=== PATIENT | male | born 1955 | race Caucasian/White ===

== ENCOUNTER → 2018-10-19 | Outpatient (CLI) | payer OTHER | END | disposition home or self-care (01) | LOC: LABPAT 15:45 | PROVIDERS: ATTEND Orthopaedic Surgery Orthopaedic Surgery of the Spine | DX: Z01.812 Encounter for preprocedural laboratory examination (principal); M41.80 Other forms of scoliosis, site unspecified | CPT/HCPCS: 80053; 81003; 85025; 85610; 85730; 86850; 86900; 86901; 87070 ==

== ENCOUNTER 2018-10-26 06:18 | Inpatient (IN) | payer MEDICARE, OTHER ==
[2018-10-19 16:56] LABS: ALT 26 U/L (21-72); AST 23 U/L (17-59); Albumin 4.5 g/dL (3.5-5.0); Alkaline Phosphatase 73 U/L (38-126); Anion Gap 9 mmol/L; Blood Urea Nitrogen 25 mg/dL (9-20); Carbon Dioxide 23 mmol/L (22-30); Chloride 102 mmol/L (98-107); Glucose 155 mg/dL (74-99); Potassium 4.5 mmol/L (3.5-5.1); Sodium 134 mmol/L (137-145); Total Bilirubin 0.5 mg/dL (0.2-1.3)
[2018-10-19 16:58] LABS: Basophils % (A) 0 %; Eosinophils # (A) 0.1 k/uL (0-0.7); Eosinophils % (A) 1 %; HCT 46.6 % (39.0-53.0); HGB 15.6 gm/dL (13.0-17.5); Lymphocytes # (A) 2.3 k/uL (1.0-4.8); Lymphocytes % (A) 22 %; MCH 30.8 pg (25.0-35.0); MCHC 33.4 g/dL (31.0-37.0); Mean Platelet Volume 6.8; Monocytes # (A) 0.7 k/uL (0-1.0); Monocytes % (A) 7 %; Neutrophils # (A) 6.7 k/uL (1.3-7.7); Neutrophils % (A) 66 %; Platelet Count 244 k/uL (150-450); RBC 5.06 m/uL (4.30-5.90); RDW 12.5 % (11.5-15.5); WBC 10.2 k/uL (3.8-10.6)
[2018-10-19 17:02] LABS: INR 0.9 (<1.2); Partial Thromboplastin Time 24.9 sec (22.0-30.0); Prothrombin Time 9.7 sec (9.0-12.0)
[2018-10-19 20:09] LABS: Appearance,Urine Clear (Clear); Bilirubin,Urine Negative (Negative); Blood,Urine Negative (Negative); Color,Urine Yellow; Glucose,Urine (UA) 3+ (Negative); Ketones,Urine Negative (Negative); Leukocyte Esterase,Urine Negative (Negative); Nitrite,Urine Negative (Negative); Protein,Urine Negative (Negative); Specific Gravity,Urine 1.033 (1.001-1.035); Urobilinogen,Urine <2.0 mg/dL (<2.0)
[~2018-10-26 06:18] MED LIST: BACITRACIN 50,000 UNIT, POLYMYXIN B 500,000 UNIT in SODIUM CHLORIDE 0.9% IRRIGATIO 1,00... IRRIGATION ONE; DEXAMETHASONE SOD PHOSPHATE 10 MG/ML 1 ML VIAL IV ONE; LIDOCAINE 1% 20 ML VIAL (10MG/ML) FOR IV START INTRADERMA PRN; MIDAZOLAM 2 MG/2 ML VIAL IV PRN; ceFAZolin IN SWFI 2 GM/20 ML SYRINGE IVP ONE; fentaNYL (PF) 50 MCG/ML 2 ML AMP IV PRN
[2018-10-26] MEDS: ONDANSETRON 4 MG/2 ML VIAL IVP ONE ×2 (06:55→13:21)
[2018-10-26] MEDS: LACTATED RINGERS 1,000 ML IV SCH ×2 (06:55→16:28)
[2018-10-26 07:16] LABS: Glucose,Whole Blood 116 mg/dL (75-99)
[2018-10-26] MEDS ORDERED: HYDROmorphone (PF) 1 MG/ML ONE (07:25)
[2018-10-26] MEDS ORDERED: ePHEDrine SULFATE/0.9% NACL/PF 50 MG/5 ML SYRINGE IV ONE (07:25)
[2018-10-26] MEDS ORDERED: ROCURONIUM BROMIDE 10 MG/ML 10 ML VIAL IV ONE (07:25)
[2018-10-26] MEDS ORDERED: PROPOFOL 10 MG/ML 20 ML VIAL IV ONE (07:25)
[2018-10-26] MEDS ORDERED: HEPARIN SODIUM,PORCINE 10,000 UNIT/ML 1 ML VIAL ONE (07:25)
[2018-10-26] MEDS ORDERED: SODIUM CHLORIDE 0.9% IRRIG 1,000 ML BTL IRRIGATION ONE (07:25)
[2018-10-26] MEDS ORDERED: KETAMINE 10 MG/ML 20 ML VIAL ONE (07:25)
[2018-10-26] MEDS ORDERED: fentaNYL (PF) 50 MCG/ML 2 ML AMP ONE (07:25)
[2018-10-26] MEDS ORDERED: LIDOCAINE 1% INJ 10MG/ML (20 ML MDV) ONE (07:25)
[2018-10-26] MEDS ORDERED: SUCCINYLCHOLINE CHLORIDE 100 MG/5 ML SYR IV ONE (07:25)
[2018-10-26] MEDS ORDERED: MIDAZOLAM 2 MG/2 ML VIAL ONE (07:25)
[2018-10-26] MEDS ORDERED: LIDOCAINE 0.5%-EPI 1:200,000 50 ML VIAL SQ ONE (08:00)
[2018-10-26] MEDS ORDERED: THROMBIN (BOVINE) 5,000 UNIT VIAL TOPICAL ONE (08:00)
[2018-10-26] MEDS ORDERED: GELATIN SPONGE,ABSORB (LARGE) 1 EACH SPONGE TOPICAL ONE (08:00)
[2018-10-26] MEDS ORDERED: LACTATED RINGERS 1,000 ML IV ONE ×2 (09:21→11:46)
[2018-10-26] MEDS ORDERED: BUPIVACAINE (PF) 0.5% 30 ML VIAL SQ ONE ×2 (12:37)
[2018-10-26] MEDS ORDERED: MAGNESIUM HYDROXIDE 2,400 MG/10 ML CUP PO PRN (13:00)
[2018-10-26] MEDS ORDERED: BENZOCAINE/MENTHOL LOZENG 1 EACH LOZENGE MUCOUS MEM PRN (13:00)
[2018-10-26] MEDS ORDERED: HYDROmorphone 1 MG/ML 1 ML SYRINGE IVP PRN ×3 (13:00→13:01)
[2018-10-26] MEDS ORDERED: ONDANSETRON 4 MG/2 ML VIAL IVP PRN (13:01)
[2018-10-26] MEDS ORDERED: HYDROcodone/APAP 5-325MG 1 EACH TAB PO PRN (13:04)
[2018-10-26] MEDS ORDERED: HYDROcodone/APAP 7.5-325MG 1 EACH TAB PO PRN (13:04)
[2018-10-26] MEDS ORDERED: TEMAZEPAM 15 MG CAP PO PRN (13:04)
[2018-10-26] MEDS ORDERED: diphenhydrAMINE 50 MG/ML 1 ML VIAL IVP ONE (13:21)
--- NOTE | 2018-10-26 13:21 | XR ---
EXAM TYPE: LUMBAR SPINE X RAY SERIES COMPARISON: NONE HISTORY: Needle placement TECHNIQUE: 4 views are submitted. FINDINGS: Single crosstable lateral view demonstrates a metallic instrument overlying the upper lumbar spine. P ostsurgical changes and severe degenerative disc disease noted. IMPRESSION: 1. Intraoperative localization
--- NOTE | 2018-10-26 13:23 | XR ---
EXAM TYPE: LUMBAR SPINE X RAY SERIES COMPARISON: NONE HISTORY: Hardware placement TECHNIQUE: 2 views are submitted. FINDINGS: Postsurgical changes are seen. There is limited resolution. Grossly there appears to be anatomic alig nment. IMPRESSION: 1. Postoperative change.
--- NOTE | 2018-10-26 13:24 | P.OP ---
Date of Procedure: 10/26/18 Preoperative Diagnosis: Degenerative scoliosis, spinal stenosis L1-2 L2-3 and L5-S1, history of prior fusion L3 4 and L4 5 with retained hardware, low back pain and lower extremity radiculopathy, lower extremity weakness, degenerative disc disease, Postoperative Diagnosis: Same with findings of solid fusion L3 4 L4 5 Anesthesia: GETA Pathology: none sent Condition: stable Disposition: PACU Description of Procedure: BRIEF OPERATIVE NOTE Preoperative Diagnosis:Degenerative scoliosis, spinal stenosis L1-2 L2-3 and L5- S1, history of prior fusion L3 4 and L4 5 with retained hardware, low back pain and lower extremity radiculopathy, lower extremity weakness, degenerative disc disease, Postoperative Diagnosis:Degenerative scoliosis, spinal stenosis L1-2 L2-3 and L5-S1, history of prior fusion L3 4 and L4 5 with retained hardware, low back pain and lower extremity radiculopathy, lower extremity weakness, degenerative disc disease, with findings of solid fusion L34 L4 5 Procedure: Removal of deep hardware L3 L4 L5, Exploration of fusion L3 4 L4 5 Laminectomy and decompression with wide bilateral foraminotomy L1-2 L2-3 and L5-S1 Posterior lateral decompression and fusion L1-2 L2-3 and L5-S1 Transforaminal lumbar interbody fusion for a 360 fusion L2-3 for a 360 fusion Discectomy for decompression L2-3 Placement of interbody graft L2-3 Local autogenous bone grafting Harvesting of bone marrow aspirate Use of Cell Saver Use of bone graft extenders Use of neuro monitoring Surgeon: Dr. Andujar Potline Monitor: Francis MESSINA who is present throughout the entire the case persistence during positioning, dissection, exposure, visualization, and all crucial elements of the case as well as closure. Anesthesia: General anesthesia Per Dr. De Guzman Estimated blood loss: 1500 mL with 478 given back through Cell Saver Complications: None apparent Components implanted:We implanted new K2M Huggins pedicle screws measuring 6.5 and 7.5 mm as well as 2 rods measuring 150 mm each one cross-link 1 [place] interbody graft 1 Osteoamp sponge and 30 mL of DBX bone fibers to supplemental local autogenous and bone marrow aspirate graft Disposition: To recovery room in good stable condition. OPERATIVE INDICATIONS The patient has had long-standing issues in their lower back and lower extremities. number of years ago he had undergone decompression and fusion L3 4 L4 5 for his spinal stenosis and lower extremity radiculopathy. He had done very well for several years however over the past year he has been developing worsening pain in his back and lower extremities. He is having weakness in his lower extremities in great difficulty with his mobilization and ambulation. He was found to have progressive degeneration above his prior fusion as well as below the fusion. He had a general scoliosis as well as severe spinal stenosis at L2-3 and significant stenosis L1-2 and L5-S1. The spinous right well with low back and lower except symptoms. The patient has been through conservative treatment. having any prolonged benefit despite aggressive conservative care. We discussed various treatment options including surgery, and the patient wishes to proceed with surgery We discussed the risk, patient's alternatives and benefits of surgery including but not limited to, risk of bleeding risk of infection, risk of need for further surgery, risk of decreased, loss of motion, muscle function, malunion nonunion, hardware failure, nerve damage, paralysis, heart attack, blindness and . OPERATIVE SUMMARY After discussing all the risks, patient alternatives and benefits at length, the patient elected to proceed with surgical intervention, signed informed consent, and presented for their procedure. The patient was seen and examined in the preoperative holding area and the surgical site was marked. The patient was given antibiotics and brought to the operating room. The patient was sedated and intubated by anesthesia in standard fashion. The patient was positioned on to the operating room table in a prone position on the appropriate frame which was well-padded and well molded. We were careful to pad any bony prominences and pressure points. We were careful to maintain the patient's cervical spine and good neutral alignment and position throughout. The patient was prepped and draped in a normal standard fashion. An appropriate timeout and keystone protocol performed. We were able to proceed with the surgery. The local wound area was infiltrated with local anesthetic. An incision was made at the midline longitudinally over the appropriate levels Utilizing his prior incision and extended cephalad and caudad. Dissection was taken down subcutaneously to the level of the fascia which was split midline. there is significant scar tissue formation we dissected through and extended down to the hardware at L3-L4 and L5 bilaterally. Dissection was taken over the lamina bilaterally over the facet joints and to the transverse processes 1 L2 and the sacral ala of S1. Using all the hardware at L3 L4 L5 and removal. There is significant bony formation over the hardware and its posterior lateral gutters and I had to chisel down significant amount of bone. I was able to expose the hardware and removed the cross-link as well as Screws and rods. I was able expose the screw heads and remove the deep screws at L3-L4 5 bilaterally. These were all examined and found be in total. The fusion L3 4 and 5 was explored and he was found have excellent solid fusion L3 L4 L5. The pedicle holes were explored and found have good for woods and a good base at L3- L4 and L5 . Further expose down at the adjacent levels. Intraoperative x-ray was taken which showed a marker at the appropriate level of L2. With the appropriate level positively confirmed, we were able to proceed with placement of the pedicle holes and screws. I further explored L1-L2 and the S1 levels. The patient had all their twitches back. The wound was copiously irrigated and suctioned dry as had been done periodically throughout the case. Screw holes were established similarly at each level at L1-L2 and at S1 bilaterally. A sharp awl was used to establish the starting hole. It was palpated and found to have good for woods and good base. A monitored Steffee probe was used to establish the pedicle hole. It was positioned so there was no stimulation at 12 mA. The hole was palpated and found to have good for woods and a good base. The hole was tapped with the appropriate sized tap. The transverse process or sacral ala was decorticated with a high-speed bur. I was able to use these holes to place the appropriate size screw and good alignment and good position with good bony purchase. When the screws were inserted there were stimulated, and found to have no stimulation at 20 mA. I was able to turn my attention to the decompression. decompression was performed with a combination of rongeurs, curettes, Kerrison rongeurs and a ball-tip feeler. the risk extremely severe spinal stenosis L2-3 him significant stenosis L1-2 and L5-S1. There was significant bony formation and had to take bony formation as well as the thickened ligamentum flavum. I did wide bilateral foraminotomies and remove the thickened capsule as well as the inferior osteophytes bilaterally. All of the bone that was removed was stripped and morcellized for use as autogenous bone graft later in the case. I was able to obtain good central decompression as well as wide bilateral foraminal decompression. There is no evidence of dural tear or leak. Good hemostasis was maintained. The wound was irrigated and suctioned dry. I was able get excellent decompression L2-3 12 and L5-S1. the most unstable level was at L2-3 and I planned to perform a TLIF with interbody stabilization at L2-3. I performed a complete facetectomy at the appropriate level on the most symptomatic side At L2-3 on the right. All bone that was removed was saved for local autogenous bone grafting. I was able to gain access to the disc space at the appropriate level/levels. Good hemostasis was maintained. I was able to protect the neurologic structures. A discectomy was performed. This provided further decompression. I was also able to perform complete discectomy and endplate preparation with a combination of pituitary curettes, rasps and scrapers. With the interbody space prepared, I was able to do appropriate sizing. The appropriate size cage was chosen. The wound was irrigated and suctioned dry. The interbody space was packed with local autogenous bone graft and a small portion of bone graft substitute, as was the cage itself. Protecting the soft tissue structures, I was able place the cage in good alignment and good position with good fit and fill. There is no eviden ce of extrusion of the graft material nor protrusion of the interbody device. The wound was irrigated and suctioned dry. With the hardware intact, intraoperative x-ray was again taken which showed good alignment and position of the hardware at the appropriate levels At L1-2 L2-3 and L3 4 5 and S1. We were then able to measure, contour and place the rods and appropriate hardware bilaterally. I was able to place capcrews, tighten them down, and torque them off appropriately. With this intact I was able to place the local autogenous bone graft with additional bone graft enhancer as necessary into the posterior lateral gutters bilaterally. With the bone graft intact, a stable construct, and good decompression at the appropriate levels, we were able to proceed with closure. Good hemostasis was maintained. There is no evidence of dural tear or leak. The fascia was closed for a watertight closure. The subcutaneous tissue was closed over a superficial drain. The subcuticular tissu e was closed with absorbable suture. The wound was cleaned and dried and dressed with the appropriate dressing. The drapes were broken down. The patient was gently rolled back onto their hospital bed being careful to maintain their cervical spine and good neutral alignment and position. They were woken up by anesthesia, extubated, and brought to the recovery room in good stable condition. The patient will be admitted to the hospital for appropriate postoperative care, medical management and monitoring. We will continue to follow them closely about the postoperative course.
[2018-10-26 13:30] LABS: Glucose,Whole Blood 145 mg/dL (75-99)
[2018-10-26] MEDS ORDERED: METOCLOPRAMIDE 5 MG/ML 2 ML VIAL IVP ONE (13:31)
[2018-10-26] MEDS ORDERED: PROMETHAZINE INJ 25 MG/ML 1 ML VIAL IVPB ONE (13:37)
[2018-10-26] MEDS: HYDROmorphone 1 MG/ML 1 ML SYRINGE IVP ONE ×2 (13:38→14:14)
[2018-10-26] MEDS: SODIUM CHLORIDE 0.9% 1,000 ML IV SCH (16:28)
[2018-10-26] MEDS: ceFAZolin IN SWFI 2 GM/20 ML SYRINGE IVP SCH ×2 (16:47→23:36)
[2018-10-26] MEDS: metFORMIN 850 MG TAB PO SCH (16:47)
[2018-10-26 16:51] LABS: Glucose,Whole Blood 214 mg/dL (75-99)
[2018-10-26] MEDS: HYDROmorphone 0.5 MG/0.5 ML SYRINGE IVP PRN ×2 (18:27→22:33)
[2018-10-26 21:01] LABS: Glucose,Whole Blood 379 mg/dL (75-99)
[2018-10-26] MEDS: GLIMEPIRIDE 2 MG TAB PO SCH (22:08)
[2018-10-26] MEDS: INSULIN ASPART (NovoLOG) 100 UNIT/ML VIAL SQ SCH (22:08)
[2018-10-26] MEDS: MAGNESIUM SULFATE-D5W PMX 1 GM in DEXTROSE/WATER 1 100ML.BAG IVPB SCH ×2 (22:09→23:36)
[2018-10-26] MEDS ORDERED: FAMOTIDINE 20 MG TAB PO STA ×2 (22:17→22:39)
--- NOTE | 2018-10-26 23:46 | CONS ---
CONSULTATION REASON FOR CONSULTATION: Advice regarding diabetes mellitus and multiple medical issues, requested by Dr. Andujar. HISTORY OF PRESENT ILLNESS: This 63-year-old gentleman with a past medical history of multiple medical problems, including history of diabetes, history of GERD, history of laminectomy, underwent exploration of fusion at L3-4, L4-5 as well as laminectomy and decompression with wide bilateral foraminotomy of L1-L2 and L2-L3 and L5-S1. Postoperatively in the recovery room in the PACU, the patient had about 9 beats of PVCs and the patient was admitted for further evaluation and treatment. Cardiology evaluation is in progress. Magnesium was 1.6. The patient also had blood sugar elevated up to 380. Insulin scale is being offered. The patient was taking only p.o. antihyperglycemic medication at home. The patient was not taking insulin. Hemoglobin A1c is unknown at this time. There is no history of any fever, rigor or chills. No history of headache, loss of consciousness, chest pain, palpitations, hematochezia or melena at this time. PAST MEDICAL HISTORY: 1. History of diabetes mellitus, type 2. 2. GERD. 3. History of DJD. MEDICATIONS: Medications prior to admission include: 1. Metformin 850 mg p.o. b.i.d. 2. Restoril 15 mg at bedtime. 3. Ranitidine 150 mg each morning. 4. Prinivil 5 mg each morning. 5. [place] 7.5 q.6 p.r.n. 6. Amaryl 2 mg p.o. b.i.d. 7. EpiPen 0.3 p.r.n. 8. Celebrex 200 mg p.o. daily. ALLERGIES: SHELLFISH. FAMILY HISTORY: History of DVT in the family. SOCIAL HISTORY: Previous history of smoking. No history of alcohol intake. REVIEW OF SYSTEMS: ENT: No diminished hearing. No diminished vision. CARDIOVASCULAR SYSTEM: As mentioned earlier. RESPIRATORY SYSTEM: As mentioned earlier. GI: No nausea, vomiting. : No dysuria or retention. NERVOUS SYSTEM: No numbness, weakness. ALLERGY/IMMUNOLOGY: No asthma, hayfever. MUSCULOSKELETAL: As mentioned earlier. HEMATOLOGY/ONCOLOGY: No history of anemia. ENDOCRINE: As mentioned earlier. CONSTITUTIONAL: As mentioned earlier. DERMATOLOGY: Negative. RHEUMATOLOGY: Negative. PSYCHIATRY: As mentioned earlier. PHYSICAL EXAMINATION: Patient is alert, oriented x3. Pulse is 97, blood pressure 110/70, respiration 18, temperature 98.2, pulse ox 97% on room air. HEENT: External appearance of nose and ears normal. Oral cavity normal. NECK: No jugular venous distention. No carotid bruit. No lymph node enlargement. CARDIOVASCULAR SYSTEM: S1, S2 muffled. No S3. No S4. RESPIRATORY SYSTEM: Breath sounds diminished at the bases. A few scattered rhonchi. No crackles. ABDOMEN: Soft, non-tender. No mass palpable. LEGS: No edema. No swelling. NERVOUS SYSTEM: Higher functions as mentioned earlier. Moves all 4 limbs. No focal motor or sensory deficit. LYMPHATICS: No lymph node palpable in neck, axillae or groin. SKIN: No ulcer, rash, bleeding. JOINTS: No active deforming arthropathy. EXAMINATION OF THE BACK: Status post surgery. LABS: Labs at this time show WBC 10.2, hemoglobin 15.6, sodium 134. Glucose 155 and 379. Magnesium 1.6. ASSESSMENT: 1. Severe degenerative joint disease of the back with spinal stenosis and status post exploration of fusion at L3, L4, L5 and laminectomy and decompression of L1 to L3 and L5 to S1. 2. Postoperative premature ventricular contractions. 3. Hyponatremia, mild. 4. Hypomagnesemia, mild. 5. Diabetes mellitus, type 2, uncontrolled, with hyperglycemia. 6. Gastroesophageal reflux disease. 7. History of degenerative joint disease. 8. History of laminectomy. 9. History of anxiety. 10.Remote history of nicotine dependence. RECOMMENDATIONS AND DISCUSSION: In this 63-year-old gentleman who presented with multiple complex medical issues, at this time I recommend to continue current management, continue symptomatic treatment. I would recommend DVT prophylaxis, incentive spirometry, with 2 grams of magnesium to correct the hypomagnesemia. Otherwise, I would also recommend Accu-Cheks before meals and at bedtime and scale. Hemoglobin A1c is not available. I would recommend hemoglobin A1c. Otherwise, cardiology consultation has been sought. A 2D echo is ordered. We will follow the patient closely with you. Thank you, Dr. Andujar, for letting us participate in the care of this patient. MMODL / IJN: [id number] /
[2018-10-27] MEDS: HYDROmorphone 0.5 MG/0.5 ML SYRINGE IVP PRN (02:26)
[2018-10-27] MEDS: SODIUM CHLORIDE 0.9% 1,000 ML IV SCH ×2 (02:30→18:33)
[2018-10-27 07:27] LABS: Glucose,Whole Blood 177 mg/dL (75-99)
[2018-10-27 08:09] LABS: Basophils % (A) 0 %; Eosinophils # (A) 0.1 k/uL (0-0.7); Eosinophils % (A) 1 %; HCT 32.8 % (39.0-53.0); Lymphocytes # (A) 1.2 k/uL (1.0-4.8); Lymphocytes % (A) 13 %; MCH 30.7 pg (25.0-35.0); Mean Platelet Volume 7.5; Monocytes # (A) 0.6 k/uL (0-1.0); Monocytes % (A) 7 %; Neutrophils # (A) 7.1 k/uL (1.3-7.7); Neutrophils % (A) 78 %; Platelet Count 160 k/uL (150-450); RBC 3.52 m/uL (4.30-5.90); RDW 12.9 % (11.5-15.5); WBC 9.1 k/uL (3.8-10.6)
[2018-10-27 08:11] LABS: Anion Gap 5 mmol/L; Blood Urea Nitrogen 14 mg/dL (9-20); Calcium 8.7 mg/dL (8.4-10.2); Carbon Dioxide 24 mmol/L (22-30); Chloride 104 mmol/L (98-107); Glucose 170 mg/dL (74-99); Magnesium 1.8 mg/dL (1.6-2.3); Potassium 4.4 mmol/L (3.5-5.1); Sodium 133 mmol/L (137-145)
[2018-10-27 08:14] LABS: HGB 10.8 gm/dL (13.0-17.5)
[2018-10-27] MEDS: metFORMIN 850 MG TAB PO SCH ×2 (08:32→18:32)
[2018-10-27] MEDS: SENNOSIDES-DOCUSATE SODIUM 1 EACH TAB PO SCH (08:32)
[2018-10-27] MEDS: LISINOPRIL 5 MG TAB PO SCH (08:33)
[2018-10-27] MEDS: GLIMEPIRIDE 2 MG TAB PO SCH ×2 (08:34→20:39)
[2018-10-27] MEDS: HYDROcodone/APAP 5-325MG 1 EACH TAB PO PRN ×2 (08:35→17:59)
[2018-10-27] MEDS ORDERED: FAMOTIDINE 20 MG TAB PO SCH (09:00)
[2018-10-27] MEDS: INSULIN ASPART (NovoLOG) 100 UNIT/ML VIAL SQ SCH ×4 (09:13→20:39)
--- NOTE | 2018-10-27 09:45 | P.PN ---
Progress Note - Text Progress Note Date: 10/27/18 Postoperative day #1 Patient is seen and examined today at bedside. The patient has some pain around the surgical site as expected. Pain is being controlled with medication. He denies any chest pain shortness of breath. He is already sitting up at a chair bedside which she was able to yesterday. He was able to void freely and his Bet[place] has been discontinued. He has tolerated some fit this morning. He denies nausea or vomiting. Physical Exam Afebrile with stable vital signs Abdomen is soft nontender. Chest has good excursion deep and space expiration The incision site is clean dry and intact. No erythema there is no purulence. His dressing in his back is still intact without significant drainage. The drain is intact. Extremities have not had neurologic change from prior to surgery. He has sustained dorsiflexion plantarflexion and EHL intact Calves and thighs were soft nontender without evidence of DVT. Assessment/Plan Postoperative day #1 status post open decompression and fusion L1-2 L2-3 and L5- S1 with removal of hardware L3 4 and L45. The patient had significant blood loss acutely with his surgery with proximal October 1499 ml blood loss with 470 Cell Saver replacement. He had a short run of V. tach history and is on telemetry monitoring. He denies any chest pain shortness breath or any prior problems with cardiac issues. 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 He is continuing monitoring and fascial workup as per cardiology. Patient is progressing as expected from the surgery in terms of his pain. We will continue to increase the patient's mobilization with therapy. We will continue pain control with oral or IV medications. We'll continue to follow patient closely. The patient does live alone and will likely need placement postop relief after his discharge from the hospital and we'll have case management see him as well.
[2018-10-27 11:52] LABS: Glucose,Whole Blood 192 mg/dL (75-99)
--- NOTE | 2018-10-27 12:27 | P.CRDCN ---
History of Present Illness History of present illness: This is a pleasant 63-year-old male past medical history significant for hypertension, diabetes mellitus, chronic back pain status post open decompression and fusion with removal of hardware. While he was in the recovery room yesterday he had a 10 beat run of monomorphic ventricular tachycardia. The patient was asymptomatic and sedated at the time. He denies having any signi ficant chest discomfort, shortness of breath, dizziness or palpitations. He was unaware that this even occurred. He is seen and examined sitting up in bed in no acute distress. He complains of some low back discomfort and is awaiting pain medication. He denies chest pain, shortness of breath, dizziness or palpitations. 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 There is no EKG obtained. Laboratory data reviewed, TSH 0.836, magnesium 1.8, creatinine 0.53,potassium 4.4, creatinine 133, platelets 160, hemoglobin 10.8 down from 15.6 on admission and WBC 9.1. Current cardiac medications include lisinopril 5 mg daily. At the time of my exam: CONSTITUTIONAL: Denies fever. Denies chills. EYES: Denies blurred vision. Denies vision changes. Denies eye pain. EARS, NOSE, MOUTH & THROAT: Denies headache. Denies sore throat. Denies ear pain. CARDIOVASCULAR: Denies chest pain. Denies shortness of breath. Denies orthopnea. Denies PND. Denies palpitations. RESPIRATORY: Denies cough. GASTROINTESTINAL: Denies abdominal pain. Denies diarrhea. Denies constipation. Denies nausea. Denies vomiting. MUSCULOSKELETAL: Denies myalgias. INTEGUMENTARY: Denies pruitis. Denies rash. NEUROLOGIC: Denies numbness. Denies tingling. Denies weakness. PSYCHIATRIC: Denies anxiety. Denies depression. ENDOCRINE: Denies fatigue. Denies weight change. Denies polydipsia. Denies polyurina. GENITOURINARY: Denies burning, hematuria or urgency with micturation. HEMATOLOGIC: Denies history of anemia. Denies bleeding. Blood pressure 138/77 heart rate 89 afebrile maintaining oxygen saturation on room air GENERAL: This is a 63]-year-old male in no apparent distress at the time of my examination. HEENT: Head is atraumatic, normocephalic. Pupils are equal, round. Sclerae anicteric. Conjunctivae are clear. Mucous membranes of the mouth are moist. Neck is supple. There is no jugular venous distention. No carotid bruit is heard. LUNGS: Clear to auscultation no wheezes, rales or rhonchi. No chest wall tenderness is noted on palpation or with deep breathing. HEART: Regular rate and rhythm without murmurs, rubs or gallops. S1 and S2 heard. ABDOMEN: Soft, nontender. Bowel sounds are heard. No organomegaly noted. EXTREMITIES: No evidence of peripheral edema and no calf tenderness noted. VASCULAR: Radial and dorsalis pedis pulses palpated, no evidence of clubbing. NEUROLOGIC: Patient is awake, alert and oriented x3. ASSESSMENT Non-sustained monomorphic ventricular tachycardia, 10 beast s/p anesthesia and laminectomy POD #1 laminectomy Hypertension Diabetes mellitus PLAN Electrolytes and TSH unremarkable. Obtain 2D echocardiogram and doppler study to assess cardiac structure and function. Patient thinks he may have had one prior to surgery but not sure where he had it, somewhere in [place]. He is attempting to obtain these records. However, since he has had this event it has been explained to him that he needs a repeat regardless. He is considering this. Initiate on atorvastatin 20 mg daily secondary to his history of diabetes. Obtain baseline EKG. Thank you kindly for this consultation. Nurse Practitioner note has been reviewed, I agree with a documented findings and plan of care. Patient was seen and examined. Past Medical History Past Medical History: Diabetes Mellitus, GERD/Reflux Additional Past Medical History / Comment(s): TAKES LISINOPRIL A PREVENTATIVE WITH FAMILY HISTORY OF CHF. History of Any Multi-Drug Resistant Organisms: None Reported Additional Past Surgical History / Comment(s): LAMINECTOMY. RIGHT TOTAL KNEE, PLUS 6 OTHER SURGERIES ON RIGHT KNEE. Past Anesthesia/Blood Transfusion Reactions: No Reported Reaction Past Psychological History: No Psychological Hx Reported Additional Psychological History / Comment(s): VERY ANXIOUS ABOUT SURGERY, HAS NO RELIABLE FAMILY. HAS DRIVEN OVER 200 MILES TO COME TO [place]/DR. HERNANDEZ. STAYING WITH FRIENDS (AMAN). Smoking Status: Former smoker Past Alcohol Use History: None Reported Additional Past Alcohol Use History / Comment(s): QUIT 50 YRS AGO Past Drug Use History: None Reported - Past Family History Mother Family Medical History: Deep Vein Thrombosis (DVT) Medications and Allergies Home Medications Medication Instructions Recorded Confirmed Type Celecoxib [CeleBREX] 200 mg PO DAILY 10/21/18 10/26/18 History EPINEPHrine (Auto Inject) [Epipen] 0.3 mg IM ONCE PRN 10/21/18 10/26/18 History Glimepiride [Amaryl] 2 mg PO BID 10/21/18 10/26/18 History HYDROcodone/APAP 5-325MG [[place] 1 tab PO Q6H PRN 10/21/18 10/26/18 History 5-325] HYDROcodone/APAP 7.5-325MG [[place] 1 tab PO Q6H PRN 10/21/18 10/26/18 History 7.5-325] Lisinopril [Prinivil] 5 mg PO QAM 10/21/18 10/26/18 History Ranitidine HCl 150 mg PO QAM 10/21/18 10/26/18 History Temazepam [Restoril] 15 mg PO HS PRN 10/21/18 10/26/18 History metFORMIN HCL 850 mg PO BID 10/21/18 10/26/18 History Allergies Allergy/AdvReac Type Severity Reaction Status Date / Time shellfish derived [Shellfish] Allergy Anaphylaxis Verified 10/26/18 13:40 Physical Exam Vitals: Vital Signs Temp Pulse Resp BP Pulse Ox 10/27/18 07:26 98.1 F 89 138/77 94 L 10/27/18 01:20 98.4 F 94 18 96/59 96 10/26/18 19:30 98.2 F 97 18 110/71 97 10/26/18 15:23 88 134/83 96 10/26/18 15:08 87 134/83 97 10/26/18 14:53 97.7 F 88 146/82 99 10/26/18 14:18 79 18 169/79 99 10/26/18 14:01 80 167/78 10/26/18 13:47 76 16 159/74 94 L 10/26/18 13:32 77 16 160/73 100 10/26/18 13:15 83 16 171/77 93 L 10/26/18 13:05 97.8 F 73 16 138/68 98 Intake and Output 05/22/19 05/23/19 05/23/19 22:59 06:59 14:59 Output Total 741 3259 Balance -745 -3258 Output: Drainage 270 230 Lower Posterior Back 270 230 Urine 475 3025 Other: Voiding Method Indwelling Catheter Results 10/27/18 07:42 10/27/18 07:42 CBC 10/27/18 Range/Units 07:42 WBC 9.1 (3.8-10.6) k/uL RBC 3.52 L (4.30-5.90) m/uL Hgb 10.8 L D (13.0-17.5) gm/dL Hct 32.8 L (39.0-53.0) % Plt Count 160 (150-450) k/uL Comprehensive Metabolic Panel 10/27/18 Range/Units 07:42 Sodium 133 L (137-145) mmol/L Potassium 4.4 (3.5-5.1) mmol/L Chloride 104 (98-107) mmol/L Carbon Dioxide 24 (22-30) mmol/L BUN 14 (9-20) mg/dL Creatinine 0.53 L (0.66-1.25) mg/dL Glucose 170 H (74-99) mg/dL Calcium 8.7 (8.4-10.2) mg/dL Current Medications Generic Name Dose Route Start Last Admin Trade Name Freq PRN Reason Stop Dose Admin Hydrocodone Bitart/Acetaminophen 1 each 10/26/18 13:01 [place] 5-325 PO Q4HR PRN Moderate Pain Hydrocodone Bitart/Acetaminophen 2 each 10/26/18 13:01 10/27/18 08:35 [place] 5-325 PO 2 each Q4HR PRN Administration Moderate Pain Atorvastatin Calcium 20 mg 10/27/18 21:00 Lipitor PO HS THALIA Benzocaine/Menthol 1 each 10/26/18 13:00 Cepacol Lozenge MUCOUS MEM Q4HR PRN Sore Throat Famotidine 20 mg 10/27/18 09:00 10/27/18 08:33 Pepcid PO 20 mg QAM THALIA Administration Glimepiride 2 mg 10/26/18 21:00 10/27/18 08:34 Amaryl PO 2 mg BID THALIA Administration Hydromorphone HCl 0.5 mg 10/26/18 13:00 10/27/18 02:26 Dilaudid IVP 0.5 mg Q4HR PRN Administration Pain Hydromorphone HCl 1 mg 10/26/18 13:01 Dilaudid IVP Q3HR PRN Pain Scale of 8 Hydromorphone HCl 2 mg 10/26/18 13:01 Dilaudid IVP Q3HR PRN Pain Scale 9 To 10 Lactated Ringer's 1,000 mls @ 20 mls/hr 10/25/18 16:00 10/26/18 16:28 Lactated Ringers IV Not Given .Q24H THALIA Sodium Chloride 1,000 mls @ 75 mls/hr 10/26/18 13:00 10/27/18 02:30 Saline 0.9% IV Not Given .[id number] THALIA Insulin Aspart 0 unit 10/26/18 21:00 10/27/18 09:13 Novolog SQ Not Given ACHS [facility] Protocol Lidocaine HCl 0.1 ml 10/25/18 16:00 10/26/18 06:55 .Xylocaine 1% Inj (10mg/Ml) For Iv Start INTRADERMA 0.1 ml PER PROTOCOL PRN Administration IV Start Lisinopril 5 mg 10/27/18 09:00 10/27/18 08:33 Zestril PO 5 mg QAM THALIA Administration Magnesium Hydroxide 2,400 mg 10/26/18 13:00 Milk Of Magnesia PO DAILY PRN Constipation Metformin HCl 850 mg 10/26/18 17:30 10/27/18 08:32 Glucophage PO 850 mg BID-W/MEALS THALIA Administration Ondansetron HCl 4 mg 10/26/18 13:01 Zofran IVP Q8HR PRN Nausea And Vomiting Senna/Docusate Sodium 1 each 10/27/18 09:00 10/27/18 08:32 Senokot-S PO 1 each DAILY THALIA Administration Temazepam 15 mg 10/26/18 13:04 Restoril PO HS PRN Insomnia Intake and Output 10/26/18 10/27/18 10/27/18 22:59 06:59 14:59 Output Total 748 2489 Balance -746 -3846 Output: Drainage 270 230 Lower Posterior Back 270 230 Urine 475 3025 Other: Voiding Method Indwelling Catheter 10/27/18 07:42 10/27/18 07:42
[2018-10-27 13:38] LABS: Hemoglobin A1C 7.3 % (4.0-6.0)
[2018-10-27 17:10] LABS: Glucose,Whole Blood 214 mg/dL (75-99)
[2018-10-27] MEDS: LACTATED RINGERS 1,000 ML IV SCH (18:33)
--- NOTE | 2018-10-27 18:56 | PN ---
PROGRESS NOTE DATE OF SERVICE: 10/27/2018 63 -year-old gentleman with a past medical history of multiple medical problems was admitted with severe degenerative joint disease of the back. The patient had PVCs, postoperative. Patient being closely monitored. The patient had a previous cardiac workup. Cardiology recommend 2D echo with Doppler at this time. No chest pain. No palpitations. No fever. EXAM: GENERAL: Alert and oriented x3. VITAL SIGNS: Pulse 99. Blood pressure 120/77, respirations 20, temperature 98.2, pulse ox 98% on room air. HEENT: Conjunctivae normal. NECK: No jugular venous distention. CARDIOVASCULAR: S1 S2 muffled. RESPIRATION: Breath sounds diminished in the bases. No rhonchi. No crackles. ABDOMEN is soft, nontender. LEGS: No edema. No swelling. CENTRAL NERVOUS SYSTEM: No focal deficits. LABS: At this time, shows WBC 9.1, hemoglobin 10.8. Magnesium improved to 1.8. Accu-Cheks noted. ASSESSMENT: 1. Severe degenerative joint disease of the back with spinal stenosis, status post exploratory fusion of L3-4, L4-L5 and laminectomy decompression L1 through L3 and L5-S1. 2. Postoperative premature ventricular contractions, improved. 3. Hyponatremia, mild, improved. 4. Hypomagnesia, mild, improved. 5. Diabetes mellitus type 2, better controlled. 6. Gastroesophageal reflux disease. 7. History of degenerative joint disease. 8. History of laminectomy. 9. History of anxiety. 10.Remote history of nicotine dependence. RECOMMENDATIONS AND DISCUSSION: Continue current medications, continue monitoring, symptomatic treatment. Otherwise 2D echo is noted. Cardiology evaluation. The lytes are improving at this time. I would recommend continue the rest of medications and recommend closely follow up in the outpatient setting. Possible stress test as an outpatient. The rest of the recommendations per Orthopedic Surgery. Further recommendations to follow. MMODL / IJN: [id number] /
[2018-10-27 20:16] LABS: Glucose,Whole Blood 216 mg/dL (75-99)
[2018-10-27] MEDS: FAMOTIDINE 20 MG/2 ML VIAL IV SCH (20:39)
[2018-10-27] MEDS: ATORVASTATIN 20 MG TAB PO SCH (20:39)
[2018-10-28 06:48] LABS: Glucose,Whole Blood 248 mg/dL (75-99)
[2018-10-28] MEDS: FAMOTIDINE 20 MG/2 ML VIAL IV SCH ×2 (08:16→20:37)
[2018-10-28] MEDS: metFORMIN 850 MG TAB PO SCH ×2 (08:16→18:02)
[2018-10-28] MEDS: INSULIN ASPART (NovoLOG) 100 UNIT/ML VIAL SQ SCH ×4 (08:16→20:37)
[2018-10-28] MEDS: GLIMEPIRIDE 2 MG TAB PO SCH ×2 (08:16→20:37)
[2018-10-28] MEDS: LISINOPRIL 5 MG TAB PO SCH (08:16)
[2018-10-28] MEDS: SENNOSIDES-DOCUSATE SODIUM 1 EACH TAB PO SCH (08:16)
[2018-10-28] MEDS: SODIUM CHLORIDE 0.9% 1,000 ML IV SCH ×2 (08:44→20:44)
--- NOTE | 2018-10-28 09:02 | P.PN ---
Progress Note - Text Progress Note Date: 10/28/18 Orthopedic Spine Patient is a pleasant 63-year-old male who is seen and examined at the bedside following posterior lateral decompression and fusion performed Wednesday. Patient states they are doing well postsurgically. He has continued to improve postoperatively. He has some back pain but states it has been adequately controlled. He is not requiring IV pain medication. He has not had any oral pain medication yet this morning. Currently does not complain of nausea, vomiting, fever, or chills. Patient states pain has been adequately controlled. Patient is eating and voiding freely without difficulty. He has not had a bowel movement over the past 5 days. He is passing some gas but states he's normally very irregular and has a bowel movement daily. He has received milk of magnesia and Senokot and still has not facilitate a bowel movement. He is planning for discharge tomorrow, 10/29/2018, to rehabilitation facility. Physical Exam Lumbar Fusion: Status post surgical day number 2 Patient is awake, alert, and oriented 3 Vital signs stable Good chest excursion with deep inspiration and expiration Abdomen soft nontender; no distention Dorsiflexion, plantarflexion, and extensor hallucis longus positive sustained bilaterally No signs or symptoms of DVT; no calf pain; pneumatic cuffs not currently intact bilateral lower extremities Dressing is clean, dry, and intact; no erythema, purulence, or signs of infection Dressing is removed and changed to nonstick Telfa and Tegaderm Neurovascularly intact bilaterally lower extremities Assessment: L1-2, L2-3, and L5-S1 posterior lateral decompression and fusion Removal of hardware L3-4 and L4-5 L2-3 transforaminal lumbar interbody fusion History of previous lumbar fusion L3-4 and L4-5 Degenerative scoliosis Low back pain and lower extremity radiculopathy Lumbar degenerative disc disease Lower extremity weakness Type 2 diabetes Plan: 1. Ambulate as tolerated; work with Physical Therapy to increase mobilization 2. Continue pain control with oral medications 3. Patient has been unable to have a bowel movement over the past 5 days and states he has a regular bowel movement daily. He has received milk of magnesia and Senokot without facilitation of a bowel movement. We'll plan to add an enema to wet end helper in the facilitation of a bowel movement. 4. Dressing changed to Telfa and Tegaderm 5. Medical management can continue to manage patient for patient's other medical issues 6. We will continue to follow the patient closely; if patient is able to continue to improve, we'll plan for discharge tomorrow, 10/29/2018, 2 rehabilitation 7. Patient can follow-up with Francis Zendejas PA-C or Dr. Efraín Andujar at [facility] in 2-3 weeks following discharge
--- NOTE | 2018-10-28 09:10 | ECHOF ---
Referral Reason:VT MEASUREMENTS -------- HEIGHT: 177.8 cm WEIGHT: 101.2 kg BP: 110/71 RVIDd: 3.3 cm (< 3.3) IVSd: 1.2 cm (0.6 - 1.1) LVIDd: 3.7 cm (3.9 - 5.3) LVPWd: 1.1 cm (0.6 - 1.1) IVSs: 1.7 cm LVIDs: 2.4 cm LVPWs: 1.5 cm LA Diam: 3.2 cm (2.7 - 3.8) Ao Diam: 4.0 cm (2.0 - 3.7) AV Cusp: 2.6 cm (1.5 - 2.6) MV EXCURSION: 14.230 mm (> 18.000) MV EF SLOPE: 30 mm/s (70 - 150) EPSS: 0.9 cm MV E Kt: 0.75 m/s MV DecT: 349 ms MV A Kt: 0.97 m/s MV E/A Ratio: 0.77 FINDINGS -------- Sinus rhythm. This was a technically adequate study. The left ventricular size is normal. There is borderline concentric left ventricular hypertrophy. Overall left ventricular systolic function is normal with, an EF between 60 - 65 %. The right ventricle is mildly enlarged. The left atrial size is normal. The right atrium is normal in size. Interatrial and interventricular septum intact. The aortic valve is trileaflet and appears structurally normal. Trace amount of aortic regurgitatio n. The mitral valve leaflets are mildly thickened. The tricuspid valve appears structurally normal. The pulmonic valve was not well visualized. The aortic root is dilated measuring 4.0cm. IVC Not well visulized. There is no pericardial effusion. CONCLUSIONS -------- 1. Sinus rhythm. 2. This was a technically adequate study. 3. The left ventricular size is normal. 4. There is borderline concentric left ventricular hypertrophy. 5. Overall left ventricular systolic function is normal with, an EF between 60 - 65 %. 6. The right ventricle is mildly enlarged. 7. The left atrial size is normal. 8. The right atrium is normal in size. 9. Interatrial and interventricular septum intact. 10. The aortic valve is trileaflet and appears structurally normal. 11. Trace amount of aortic regurgitation. 12. The mitral valve leaflets are mildly thickened. 13. The tricuspid valve appears structurally normal. 14. The pulmonic valve was not well visualized. 15. The aortic root is dilated measuring 4.0cm. 16. IVC Not well visulized. 17. There is no pericardial effusion. SOLUTION MANAGER: Mary Balderrama RDCS
[2018-10-28] MEDS: HYDROcodone/APAP 5-325MG 1 EACH TAB PO PRN ×3 (10:17→23:22)
--- NOTE | 2018-10-28 10:45 | PN ---
PROGRESS NOTE This is a 63-year-old gentleman who was admitted to hospital for back surgery and had a run of nonsustained VT. He had an echocardiogram that shows normal LV systolic function and wall motion, does not require any further workup at this time. He will need an outpatient stress test. PHYSICAL EXAMINATION: Physical exam today shows that he is comfortable at rest. Vital signs are stable. There is no jugular venous distention. Chest exam reveals good air entry bilaterally. Heart exam reveals first and second heart sounds. No gallop. Examination of the extremities did not reveal any edema. Peripheral pulses are felt. ASSESSMENT: Nonsustained ventricular tachycardia. PLAN: Patient is doing well. He will continue the beta blockers that he is on. MMODL / IJN: [id number] /
[2018-10-28 11:52] LABS: Glucose,Whole Blood 145 mg/dL (75-99)
[2018-10-28] MEDS ORDERED: BISACODYL 5 MG TABLET.DR PO PRN (12:14)
[2018-10-28 16:30] LABS: Glucose,Whole Blood 244 mg/dL (75-99)
[2018-10-28] MEDS: LACTATED RINGERS 1,000 ML IV SCH (17:14)
--- NOTE | 2018-10-28 18:05 | P.PN ---
Subjective patient says that he's doing good. He does not complain of any chest pain, racing heart, no cough no shortness of breath. Objective - Vital Signs Vital signs: Vital Signs Temp 98.4 F 10/28/18 12:39 Pulse 100 10/28/18 12:39 Resp 16 10/28/18 16:13 BP 110/52 10/28/18 12:39 Pulse Ox 99 10/28/18 12:39 Intake & Output 10/27/18 10/28/18 10/28/18 18:59 06:59 18:59 Intake Total 800 1155 420 Output Total 175 80 Balance 625 1075 420 Intake: Intake, IV Titration 975 Amount Sodium Chloride 0.9% 1, 975 000 ml @ 75 mls/hr IV . [id number] THALIA Rx#:[id number] Oral 800 180 420 Output: Drainage 175 80 Lower Posterior Back 175 80 Other: Voiding Method Indwelling Catheter Indwelling Catheter # Voids 3 2 - Exam On exam, alert and oriented x3. HEENT: Conjunctivae normal. eyes normal. NECK: No JVD. No thyroid enlargement. No LNs CARDIOVASCULAR: S1, S2 muffled. No murmur RESPIRATION: Breath sounds diminished in the bases. No rhonchi or crackles. No bronchial breathing. ABDOMEN: Soft, nontender . No guarding. no masses palpable. No ascites, No hepatosplenomegaly.Bowel sounds heard. LEGS: No edema. no swelling NERVOUS SYSTEM: Cranial N 2-12 grossly normal. Moves all 4 limbs. No focal deficits. No sensory deficit. No signs of cerebellar dysfucntion. - Labs CBC & Chem 7: 10/27/18 07:42 10/27/18 07:42 Labs: Abnormal Lab Results - Last 24 Hours (Table) 10/27/18 10/28/18 10/28/18 Range/Units 20:05 06:46 11:50 POC Glucose (mg/dL) 216 H 248 H 145 H (75-99) mg/dL 10/28/18 Range/Units 16:29 POC Glucose (mg/dL) 244 H (75-99) mg/dL Assessment and Plan Assessment: - status post expiratory fusion of L3-L4 and L4-L5 and laminectomy decompression L1 through L3and L5-S1 status post severe degenerative joint disease - Premature ventricular contractions improved - Diabetes mellitus - History of anxiety - History of nicotine dependence - History of GERD Plan - Continue to monitor the patient - Cardiologyrecommendedcontinue beta blockers and follow with him outpatientfor possible stress test as an outpatient - we'll continue to monitor the patient - Continue current management Time with Patient: Greater than 30
[2018-10-28] MEDS: ATORVASTATIN 20 MG TAB PO SCH (20:37)
[2018-10-28 20:38] LABS: Glucose,Whole Blood 202 mg/dL (75-99)
[2018-10-29 07:07] LABS: Glucose,Whole Blood 199 mg/dL (75-99)
[2018-10-29 07:55] VITALS: BP 148/92; RESP 17; TEMP 98.7
[2018-10-29 07:56] VITALS: PULSE 95
[2018-10-29] MEDS: GLIMEPIRIDE 2 MG TAB PO SCH (07:56)
[2018-10-29] MEDS: LISINOPRIL 5 MG TAB PO SCH (07:56)
[2018-10-29] MEDS: SENNOSIDES-DOCUSATE SODIUM 1 EACH TAB PO SCH (07:56)
[2018-10-29] MEDS: FAMOTIDINE 20 MG/2 ML VIAL IV SCH (07:57)
[2018-10-29] MEDS: metFORMIN 850 MG TAB PO SCH (07:57)
[2018-10-29] MEDS: HYDROcodone/APAP 5-325MG 1 EACH TAB PO PRN (07:57)
[2018-10-29] MEDS: INSULIN ASPART (NovoLOG) 100 UNIT/ML VIAL SQ SCH ×2 (07:59→12:09)
--- NOTE | 2018-10-29 10:15 | P.PN ---
Subjective Patient is doing well. He is sitting comfortably in a chair. No respiratory distress no chest discomfort no chronic symptoms no palpitations On detailed questioning he denies any prior history of palpitations or fluttering in the chest or the neck No history of syncope no motor vehicle accidents On examination heart sounds are normal and regular Afebrile 98.7F pulse rate in the 80s and 90s Blood pressure 148/92 mmHg Abdomen soft nontender Extremities warm no edema Impression An episode of wide complex tachycardia intraoperatively during his back surgery. Line follow-up telemetry has not shown any arrhythmias at all The patient has no symptoms of arrhythmias or syncope Hypertension on lisinopril Diabetes Atorvastatin Suggest From a chronic standpoint he may go home and follow with Dr. Morelos for further cardiac workup Objective - Vital Signs Vital signs: Vital Signs Temp 98.7 F 10/29/18 07:00 Pulse 95 10/29/18 07:55 Resp 17 10/29/18 07:00 BP 148/92 10/29/18 07:00 Pulse Ox 100 10/29/18 07:00 Intake & Output 10/28/18 10/29/18 10/29/18 18:59 06:59 18:59 Intake Total 420 280 Output Total 300 Balance 420 -20 Intake: Oral 420 280 Output: Urine 300 Other: Voiding Method Indwelling Catheter # Voids 2 - Labs CBC & Chem 7: 10/27/18 07:42 10/27/18 07:42 Labs: Abnormal Lab Results - Last 24 Hours (Table) 10/28/18 10/28/18 10/28/18 Range/Units 11:50 16:29 20:27 POC Glucose (mg/dL) 145 H 244 H 202 H (75-99) mg/dL 10/29/18 Range/Units 07:06 POC Glucose (mg/dL) 199 H (75-99) mg/dL
--- NOTE | 2018-10-29 10:40 | P.DS ---
Providers Date of admission: 10/26/18 06:18 Expected date of discharge: 10/29/18 Attending physician: Angle Andujar Consults: 10/26/18 13:01 Consult Physician Routine Consulting Provider: Keagan Adams Consult Reason/Comments: Medical management Do you want consulting provider notified?: Yes 10/26/18 14:04 Consult Physician Urgent Consulting Provider: Jones Ku Consult Reason/Comments: RUN OF PVC'S (9 COMPLEXES) Do you want consulting provider notified?: Yes Primary care physician: Stated None - Discharge Diagnosis(es) (1) Status post lumbar spinal fusion Current Visit: Yes Status: Acute (2) History of lumbar fusion Current Visit: Yes Status: Acute (3) Low back pain Current Visit: Yes Status: Acute (4) Lumbar degenerative disc disease Current Visit: Yes Status: Acute (5) Type 2 diabetes mellitus Current Visit: Yes Status: Acute (6) Degenerative scoliosis Current Visit: Yes Status: Acute Hospital Course: This is a pleasant 63-year-old male who presented with degenerative scoliosis, L1-2, L2-3, and L5-S1 spinal canal stenosis, history of previous lumbar fusion L3-4 and L4-5 with retained hardware, low back pain and lower extremity radiculopathy, lower extremity weakness, and lumbar degenerative disc disease who failed outpatient conservative therapy. He was admitted for L1-2, L2-3, and L5-S1 posterior lateral decompression and fusion with removal of hardware at L3- 4 and L4-5 and L2-3 transforaminal lumbar interbody fusion. The patient tolerated the procedure well and did well postoperatively. He continues to have some pain at the surgical site states his pain has been adequately controlled. Is not currently complaining of any significant lower extremity weakness or radiculopathy bilaterally. He is ready for discharge today to [facility] rehabilitation facility. Condition on day of discharge stable. Patient has been cleared for discharge from a cardiology and medical standpoint. Patient was cleared preoperatively for surger. Patient currently denies any nausea, vomiting, fever, or chills. Patient is eating and voiding freely without difficulty. Patient may shower Tegaderm dressing intact. Patient may remove Tegaderm dressing in 3 days and shower without a dressing at that time. Patient should keep Steri-Strips intact and allow them to fall off naturally. Patient may continue with daily dressing changes nonstick Telfa and Tegaderm as needed while at the rehabilitation facility. Patient should refrain from driving until at least after their first follow-up appointment in the office. Patient should avoid excessive bending, lifting, and twisting; no lifting greater than 10 pounds. MAPS has been reviewed today, 10/29/2018, with an Overall Overdose Risk Score of 360 with a narcotic score of 362. An "Opiod Start Talking" Forn has been signed by the patient and myself in place in the patient's chart. A prescription has been written for Blue Grass 5 mg 325 mg take 1 tablet 4 hours as needed for pain, dispensed #42. Patient may resume other previously prescribed home medications. We did discuss he should try to avoid anti-inflammatories over the next 6 weeks postope ratively. Patient did have an episode of ventricular tachycardia postoperatively which has resolved. He has been seen and examined from a cardiology standpoint. They discussed starting a beta daria but did not start this medication. Cardiology has been contacted this morning and has cleared the patient for discharge without any prescription medication needed. Patient will plan to follow car diology outpatient setting for further evaluation and will plan for further stress testing at that time. Physical Exam on day of discharge: Patient is awake, alert, and oriented 3 Vital signs stable Good chest excursion with deep inspiration and expiration Abdomen soft nontender No signs or symptoms of DVT; no calf pain Extensor hallucis longus, plantarflexion, and dorsiflexion positive sustained bilateral lower extremities Incision is clean and intact some small areas of blood; no erythema, purulence, or signs of infection Tegaderm dressing and non-stick Telfa intact Procedures: L1-2, L2-3, and L5-S1 posterior lateral decompression and fusion with removal of hardware at L3-4 and L4-5 and L2-3 transforaminal lumbar interbody fusion. Patient Condition at Discharge: Stable Plan - Discharge Summary Discharge Rx Participant: No New Discharge Prescriptions: New Atorvastatin [Lipitor] 20 mg PO HS #90 tab HYDROcodone/APAP 5-325MG [Blue Grass 5-325] 1 tab PO Q4HR PRN 7 Days #42 tab PRN Reason: Pain Continue Celecoxib [CeleBREX] 200 mg PO DAILY EPINEPHrine (Auto Inject) [Epipen] 0.3 mg IM ONCE PRN PRN Reason: ALLERGIC REACTIONS Glimepiride [Amaryl] 2 mg PO BID Lisinopril [Prinivil] 5 mg PO QAM metFORMIN HCL 850 mg PO BID Ranitidine HCl 150 mg PO QAM Temazepam [Restoril] 15 mg PO HS PRN PRN Reason: Insomnia Discontinued HYDROcodone/APAP 5-325MG [Blue Grass 5-325] 1 tab PO Q6H PRN PRN Reason: Pain HYDROcodone/APAP 7.5-325MG [Blue Grass 7.5-325] 1 tab PO Q6H PRN PRN Reason: Pain Discharge Medication List Celecoxib [CeleBREX] 200 mg PO DAILY 10/21/18 [History] EPINEPHrine (Auto Inject) [Epipen] 0.3 mg IM ONCE PRN 10/21/18 [History] Glimepiride [Amaryl] 2 mg PO BID 10/21/18 [History] Lisinopril [Prinivil] 5 mg PO QAM 10/21/18 [History] Ranitidine HCl 150 mg PO QAM 10/21/18 [History] Temazepam [Restoril] 15 mg PO HS PRN 10/21/18 [History] metFORMIN HCL 850 mg PO BID 10/21/18 [History] Atorvastatin [Lipitor] 20 mg PO HS #90 tab 10/27/18 [Rx] HYDROcodone/APAP 5-325MG [Blue Grass 5-325] 1 tab PO Q4HR PRN 7 Days #42 tab 10/29/18 [Rx] Follow up Appointment(s)/Referral(s): Francis Zendejas PAC [PHYSICIAN FINAL INSPECTION SUPERVISOR] - 2 Weeks (Patient may follow-up with Francis Zendejas PA-C or Dr. Efraín Andujar at [facility] in 2-3 weeks following discharge. ) Austin Thompson MD [STAFF PHYSICIAN] - 2 Weeks Activity/Diet/Wound Care/Special Instructions: 1. Patient may shower with Tegaderm dressing intact. 2. Patient may remove Tegaderm dressing in 3 days and shower without a dressing at that time. 3. Patient should keep Steri-Strips intact and allow them to fall off naturally. 4. Continue with daily dressing changes with nonstick Telfa and Tegaderm as needed 5. Patient should refrain from driving until at least after their first follow- up appointment in the office. 6. Patient should avoid excessive bending, twisting, and lifting; no lifting greater than 10 pounds 7. Take medications as prescribed 8. Do not soak in tub Discharge Disposition: TRANSFER TO SNF/ECF
[2018-10-29] MEDS: SODIUM CHLORIDE 0.9% 1,000 ML IV SCH (10:44)
--- NOTE | 2018-10-29 11:28 | P.PN ---
Subjective patient says that he's doing good. He does not complain of any chest pain, racing heart, no cough no shortness of breath. 10/29/2018 Patient says that he's feeling good He does not have any complaints No chest pain or racing heart, no cough no shortness of breath Objective - Vital Signs Vital signs: Vital Signs Temp 98.7 F 10/29/18 07:00 Pulse 95 10/29/18 07:55 Resp 17 10/29/18 08:00 BP 148/92 10/29/18 07:00 Pulse Ox 100 10/29/18 07:00 Intake & Output 10/28/18 10/29/18 10/29/18 18:59 06:59 18:59 Intake Total 420 280 Output Total 300 Balance 420 -20 Intake: Oral 420 280 Output: Urine 300 Other: Voiding Method Indwelling Catheter Indwelling Catheter # Voids 2 - Exam On exam, alert and oriented x3. HEENT: Conjunctivae normal. eyes normal. NECK: No JVD. No thyroid enlargement. No LNs CARDIOVASCULAR: S1, S2 muffled. No murmur RESPIRATION: Breath sounds diminished in the bases. No rhonchi or crackles. No bronchial breathing. ABDOMEN: Soft, nontender . No guarding. no masses palpable. No ascites, No hepatosplenomegaly.Bowel sounds heard. LEGS: No edema. no swelling NERVOUS SYSTEM: Cranial N 2-12 grossly normal. Moves all 4 limbs. No focal deficits. No sensory deficit. No signs of cerebellar dysfucntion. - Labs CBC & Chem 7: 10/27/18 07:42 10/27/18 07:42 Labs: Abnormal Lab Results - Last 24 Hours (Table) 10/28/18 10/28/18 10/28/18 Range/Units 11:50 16:29 20:27 POC Glucose (mg/dL) 145 H 244 H 202 H (75-99) mg/dL 10/29/18 Range/Units 07:06 POC Glucose (mg/dL) 199 H (75-99) mg/dL Assessment and Plan Assessment: - status post expiratory fusion of L3-L4 and L4-L5 and laminectomy decompression L1 through L3and L5-S1 status post severe degenerative joint disease - Premature ventricular contractions improved - Diabetes mellitus - History of anxiety - History of nicotine dependence - History of GERD Plan 10/28/2018 - Continue to monitor the patient - Cardiologyrecommendedcontinue beta blockers and follow with him outpatientfor possible stress test as an outpatient - we'll continue to monitor the patient - Continue current management 10/29/2018 - Patient is doing better and has no current complaints. - Patient to follow with cardiology as an outpatient for possible stress test - Patient to go to rehab Time with Patient: Less than 30
[2018-10-29 11:34] LABS: Glucose,Whole Blood 153 mg/dL (75-99)
== END 2018-10-29 14:22 | DRG 454 ==
LOC: 2ORMAIN 06:18 → 4SSUR 13:32
PROVIDERS: ADMIT Orthopaedic Surgery Orthopaedic Surgery of the Spine; ATTEND Orthopaedic Surgery Orthopaedic Surgery of the Spine
PROC: 0ST20ZZ Resection of Lumbar Vertebral Disc, Open Approach (ICD-10-PCS; principal; 2018-10-26 07:30)
PROC: 0SG00AJ Fusion of Lumbar Vertebral Joint with Interbody Fusion Device, Posterior Approach, Anterior Column, Open Approach (ICD-10-PCS; principal; 2018-10-26 07:30)
PROC: 0SP004Z Removal of Internal Fixation Device from Lumbar Vertebral Joint, Open Approach (ICD-10-PCS; principal; 2018-10-26 07:30)
PROC: 0SG3071 Fusion of Lumbosacral Joint with Autologous Tissue Substitute, Posterior Approach, Posterior Column, Open Approach (ICD-10-PCS; principal; 2018-10-26 07:30)
PROC: 0SG1071 Fusion of 2 or more Lumbar Vertebral Joints with Autologous Tissue Substitute, Posterior Approach, Posterior Column, Open Approach (ICD-10-PCS; principal; 2018-10-26 07:30)
PROC: 07DS3ZZ Extraction of Vertebral Bone Marrow, Percutaneous Approach (ICD-10-PCS; principal; 2018-10-26 07:30)
DX: M48.061 Spinal stenosis, lumbar region without neurogenic claudication (principal); E87.1 Hypo-osmolality and hyponatremia; I47.2 Ventricular tachycardia; E11.65 Type 2 diabetes mellitus with hyperglycemia; I49.3 Ventricular premature depolarization; E83.42 Hypomagnesemia; E66.9 Obesity, unspecified; F41.9 Anxiety disorder, unspecified; I10 Essential (primary) hypertension; K21.9 Gastro-esophageal reflux disease without esophagitis; M41.50 Other secondary scoliosis, site unspecified; M47.9 Spondylosis, unspecified; M51.16 Intervertebral disc disorders with radiculopathy, lumbar region; Z96.651 Presence of right artificial knee joint; Z79.1 Long term (current) use of non-steroidal anti-inflammatories (NSAID); Z79.84 Long term (current) use of oral hypoglycemic drugs; Z79.899 Other long term (current) drug therapy; Z87.891 Personal history of nicotine dependence; Z68.32 Body mass index [BMI] 32.0-32.9, adult; Z91.013 Allergy to seafood; Z98.1 Arthrodesis status; Z83.3 Family history of diabetes mellitus; Z82.49 Family history of ischemic heart disease and other diseases of the circulatory system
CPT/HCPCS: 72020; 72100; 80048; 80053; 81003; 83036; 83735; 84443; 85025; 85610; 85730; 86850; 86891; 86900; 86901; 87070; 93306

== ENCOUNTER → 2020-01-04 | Outpatient (CLI) | payer MEDICARE ==
[2020-01-04 08:44] LABS: HGB 14.5 gm/dL (13.0-17.5); MCH 31.8 pg (25.0-35.0); MCHC 33.7 g/dL (31.0-37.0); MCV 94.4 fL (80.0-100.0); Mean Platelet Volume 7.8; Platelet Count 225 k/uL (150-450); RBC 4.55 m/uL (4.30-5.90); RDW 12.9 % (11.5-15.5); WBC 8.1 k/uL (3.8-10.6)
[2020-01-04 08:49] LABS: Appearance,Urine Clear (Clear); Bilirubin,Urine Negative (Negative); Blood,Urine Negative (Negative); Color,Urine Yellow; Glucose,Urine (UA) Negative (Negative); Ketones,Urine Negative (Negative); Leukocyte Esterase,Urine Negative (Negative); Nitrite,Urine Negative (Negative); Protein,Urine Trace (Negative); Specific Gravity,Urine 1.028 (1.001-1.035)
[2020-01-04 08:53] LABS: Partial Thromboplastin Time 24.3 sec (22.0-30.0)
[2020-01-04 08:56] LABS: ALT 22 U/L (4-49); AST 21 U/L (17-59); African American GFR (CKD) >90 (>60 ml/min/1.73 sqM); Albumin 4.7 g/dL (3.5-5.0); Alkaline Phosphatase 64 U/L (38-126); Anion Gap 11 mmol/L; Blood Urea Nitrogen 25 mg/dL (9-20); Calcium 9.8 mg/dL (8.4-10.2); Carbon Dioxide 23 mmol/L (22-30); Chloride 103 mmol/L (98-107); Glucose 218 mg/dL (74-99); Non-African American GFR(CKD) >90 (>60 ml/min/1.73 sqM); Potassium 4.8 mmol/L (3.5-5.1); Sodium 137 mmol/L (137-145); Total Bilirubin 0.6 mg/dL (0.2-1.3); Total Protein 7.3 g/dL (6.3-8.2)
== END | disposition home or self-care (01) ==
LOC: LABPAT 07:49
PROVIDERS: ATTEND Orthopaedic Surgery
DX: Z01.818 Encounter for other preprocedural examination (principal)
CPT/HCPCS: 36415; 80053; 81003; 85027; 85610; 85730; 86850; 86900; 86901; 87070

== ENCOUNTER 2020-01-15 12:44 | Day surgery (SDC) | payer MEDICARE, OTHER ==
[2020-01-05 11:26] VITALS: BMI 33.7
[~2020-01-15 12:44] MED LIST changes: +ACETAMINOPHEN TAB 500 MG TAB PO ONE; -BACITRACIN 50,000 UNIT, POLYMYXIN B 500,000 UNIT in SODIUM CHLORIDE 0.9% IRRIGATIO 1,00... IRRIGATION ONE; -DEXAMETHASONE SOD PHOSPHATE 10 MG/ML 1 ML VIAL IV ONE; +GABAPENTIN 300 MG CAP PO ONE; +LIDOCAINE 1% (10MG/ML) FOR IV START INTRADERMA PRN; -LIDOCAINE 1% 20 ML VIAL (10MG/ML) FOR IV START INTRADERMA PRN; +MELOXICAM 7.5 MG TAB PO ONE; +TRANEXAMIC ACID 1,000 MG in SODIUM CHLORIDE 0.9% 100 ML IVPB ONE; -ceFAZolin IN SWFI 2 GM/20 ML SYRINGE IVP ONE
[2020-01-15] MEDS ORDERED: ACETAMINOPHEN TAB 500 MG TAB ONE (13:16)
[2020-01-15] MEDS ORDERED: ONDANSETRON 4 MG/2 ML VIAL ONE (13:16)
[2020-01-15 13:46] LABS: Glucose,Whole Blood 176 mg/dL (75-99)
[2020-01-15] MEDS ORDERED: DEXAMETHASONE SOD PHOSPHATE 10 MG/ML 1 ML VIAL IV ONE (13:47)
[2020-01-15] MEDS ORDERED: ONDANSETRON 4 MG/2 ML VIAL IVP ONE (13:47)
[2020-01-15] MEDS: LACTATED RINGERS 1,000 ML IV SCH ×2 (13:47→17:58)
[2020-01-15] MEDS ORDERED: SODIUM CHLORIDE 0.9% IRRIG 1,000 ML BTL IRRIGATION ONE (14:41)
[2020-01-15] MEDS ORDERED: HEPARIN SODIUM,PORCINE 10,000 UNIT/ML 1 ML VIAL ONE (14:41)
[2020-01-15] MEDS ORDERED: SUCCINYLCHOLINE CHLORIDE 100 MG/5 ML SYR IV ONE (14:41)
[2020-01-15] MEDS ORDERED: fentaNYL (PF) 50 MCG/ML 2 ML AMP ONE (14:41)
[2020-01-15] MEDS ORDERED: GLYCOPYRROLATE 0.2 MG/ML 2 ML VIAL ONE (14:41)
[2020-01-15] MEDS ORDERED: MIDAZOLAM 2 MG/2 ML VIAL ONE (14:41)
[2020-01-15] MEDS ORDERED: LIDOCAINE 1% INJ 10MG/ML (20 ML MDV) ONE (14:41)
[2020-01-15] MEDS ORDERED: NEOSTIGMINE 1 MG/ML 10 ML VIAL ONE (14:41)
[2020-01-15] MEDS ORDERED: ROCURONIUM BROMIDE 10 MG/ML 5 ML VIAL IV ONE (14:41)
[2020-01-15] MEDS ORDERED: PROPOFOL 10 MG/ML 20 ML VIAL IV ONE (14:41)
[2020-01-15] MEDS: ROPIVACAINE 246.25 MG, EPINEPHrine 0.5 MG, KETOROLAC 30 MG, cloNIDine HCL/PF 80 MCG, WA... MISCELLANE ONE ×10 (14:42→15:50)
[2020-01-15] MEDS ORDERED: ceFAZolin 1,000 MG in SODIUM CHLORIDE 0.9% 1,000 ML IRRIGATION ONE (15:07)
[2020-01-15] MEDS ORDERED: LACTATED RINGERS 1,000 ML IV ONE (15:52)
--- NOTE | 2020-01-15 15:57 | P.OP ---
Date of Procedure: 01/15/20 Preoperative Diagnosis: Severe osteoarthritis left hip Postoperative Diagnosis: Severe osteoarthritis left hip Procedure(s) Performed: Left total arthroplasty with a direct anterior approach Implants: Salgado and nephew Polarstem size 3 standard Salgado [employer] Nephew R3, 3 hole acetabular shell, 52 mm Salgado [employer] Nephew reflection 6.5 mm cancellus screw, 20 mm 2 Salgado [employer] Nephew R3, XLPE 20 acetabular liner Salgado [employer] Nephew Oxinium femoral head 36 m, +0 All components were press-fit. The articulation is Oxinium on polyethylene. Anesthesia: spinal Surgeon: Ned Maldonado Supervisor Pipe Finishing #1: Marisela Hays Estimated Blood Loss (ml): 150 (80 mL returned with Cell Saver) Pathology: other (Femoral head) Condition: stable Disposition: PACU Indications for Procedure: After failure of conservative treatment we discussed the surgical and nonsurgical treatment options at length. Patient wishes to proceed with a total hip arthroplasty with a direct anterior approach. Complications specific to this procedure were discussed at length, including but not limited to infection, leg length discrepancy, dislocation, and nerve injury. Covid-19 was also discussed at length with the patient, and they are aware of the current policies and procedures. The patient was given the option of delaying surgery, but they elect to proceed knowing these risks. Patient is aware of all these complications and informed consent was obtained Operative Findings: The operative findings are consistent with severe osteoarthritis the left hip Description of Procedure: Patient was seen and evaluated in the preoperative area, consent was reviewed, and the surgical site was marked with a skin marker. Patient was then brought to the operating room and given prophylactic antibiotics intravenously. 1 g of Tranexamic acid was also given. A spinal anesthetic was administered by the anesthesia department. The patient was then placed on the Hamburg table with the bony prominences well-padded. The hip area was then prepped and draped in usual sterile fashion. A universal timeout was then performed, which confirmed the patient's name, surgical site, ALLERGIES, and procedure being performed. Next the incision site was located at 1 cm distal and 1 cm lateral to the anterior superior iliac spine. The skin and subcutaneous tissues were sharply incised. Incision was carefully dissected down to the fascia overlying the tensor fascia raphael muscle. This fascia was then incised in line with the incision. Next, using blunt finger dissection, the tensor fascia raphael muscle was dissected off its investing fascia. The muscle was then carefully retracted laterally with a cobra retractor over the lateral neck of the femur. Next, the circumflex vessels were identified and cauterized using the AquaMantis device. The anterior hip capsule was then exposed. The capsule was then opened and an inverted T fashion. Cobra retractors were then placed intracapsularly. The proximal femur was then visualized. The femoral neck was then osteotomized appropriate level above the lesser trochanter. Small amount of traction was placed with the Hamburg table. A small wedge of bone was then removed from the remaining femoral head. Next, using a corkscrew femoral head was easily removed from the acetabulum. On gross visual inspection, the femoral head had complete loss of articular cartilage in multiple periarticular osteophytes. Attention was then turned to the acetabulum. the acetabulum was exposed and any remaining labrum was excised. Sequential reaming of the acetabulum was performed using fluoroscopic guidance. When the appropriate size was reached, a trial was then placed. The position and fit of the trial was checked with fluoroscopy. The trial was then removed. Then, using fluoroscopic guidance, the final implant was impacted at 20 of anteversion and 40 of abduction, and fully seated in the acetabulum. 2 screws were then placed in the acetabulum. Again fluoroscopy was used to check position of the screws. Next, the liner was then impacted, with a 20 elevated liner located in the anterior superior quadrant. Component locking was confirmed. Attention was then directed to the femur. With the aid of the Hamburg table, the femur was externally rotated to approximately 130, extended, and abducted under the opposite leg. A side hook was then placed under the proximal femur, and the side hook elevator was used to elevate the proximal femur. Retractors were then placed. A capsular release was performed, as well as a release of the conjoined tendon, which afforded excellent visualization of the proximal femur. Next, a box osteotome was used to lateralize the proximal femur. A cut order hand was then used to locate the femoral canal. Sequential broaching was then performed with appropriate size which afforded excellent fixation in the proximal femur. A trial was then placed with appropriate head and neck, and the hip was gently reduced with the aid of the Hamburg table. Fluoroscopy was then used to check position of the components, as well as to ensure equal leg lengths. The hip was then gently dislocated and the trials were then removed. Final implants were then impacted and the hip was again reduced. Final fluoroscopic x-rays confirmed that the components were in anatomic position, as well as equal leg lengths. The hip was also taken through range of motion, and found to be stable. The hip was then copiously irrigated with antibiotic solution with pulsatile lavage. The hip was then irrigated with Irrisept solution. The soft tissues were then injected with a ropivacaine solution, which consisted of 246.25 mg of ropivacaine, 0.5 mg of epinephrine, 30 mg of Toradol, 80 g of clonidine, and 48.45 mL of sterile water, for a total of 100 mL of fluid injected. A second dose of 1 g of Tranexamic acid was also given. the fascia was then closed with 2-0 strata fix suture. The subcutaneous tissue was closed with 3-0 Vicryl. The subcuticular tissue was closed with 3-0 strata fix suture. The skin was then closed with Dermabond glue and a sterile silver dressing. The patient was then transferred to the recovery room in stable condition. The syrup mixer assistant SIDDHARTH Norman was required due to the complexity of surgery, and the need for skilled surgical garment assembler for positioning, draping, exposure, retraction, and closure of the wound.
[2020-01-15] MEDS ORDERED: HYDROmorphone 1 MG/ML 1 ML SYRINGE IVP ONE ×4 (16:28→17:07)
[2020-01-15] MEDS ORDERED: NALOXONE 0.4 MG/ML 1 ML VIAL IV PRN (16:46)
[2020-01-15] MEDS ORDERED: HYDROcodone/APAP 5-325MG 1 EACH TAB PO PRN (16:46)
[2020-01-15] MEDS ORDERED: hydrOXYzine pamoate 25 MG CAP PO PRN (16:46)
[2020-01-15] MEDS ORDERED: diazePAM 5 MG TAB PO PRN (16:46)
[2020-01-15] MEDS ORDERED: ONDANSETRON 4 MG/2 ML VIAL IVP PRN (16:46)
[2020-01-15] MEDS ORDERED: MAGNESIUM HYDROXIDE 2,400 MG/10 ML CUP PO PRN (16:46)
[2020-01-15] MEDS ORDERED: HYDROmorphone 0.5 MG/0.5 ML SYRINGE IVP PRN ×3 (16:46)
[2020-01-15 17:00] LABS: Glucose,Whole Blood 207 mg/dL (75-99)
[2020-01-15] MEDS ORDERED: diphenhydrAMINE 50 MG/ML 1 ML VIAL IVP ONE (17:12)
--- NOTE | 2020-01-15 17:47 | XR ---
EXAMINATION TYPE: XR Hip Limited LT DATE OF EXAM: 01/15/2020 CLINICAL HISTORY: Left hip pain and osteoarthritis. TECHNIQUE: Single AP portable view of left hip is obtained immediately postoperatively. COMPARISON: None. FINDINGS: Metallic hardware from total left hip arthroplasty is seen and appears satisfactory in alig nment and position. There is evidence of recent surgery with subcutaneous gas noted laterally. IMPRESSION: Metallic hardware from total left hip arthroplasty is satisfactory in position.
--- NOTE | 2020-01-15 17:59 | FL ---
EXAMINATION TYPE: FL guidance operating room, XR Hip Limited LT DATE OF EXAM: 01/15/2020 CLINICAL HISTORY: Left hip pain and osteoarthritis. TECHNIQUE: Fluoroscopy. Limited intraoperative views left hip. COMPARISON: None. FINDINGS: Fluoroscopic guidance was provided during left hip replacement procedure performed by Dr. Maldonado. A total of 38 seconds of fluoroscopic time was utilized during the procedure and 2 spot in traoperative images are acquired. Interoperative images acquired show metallic hardware from total left hip arthroplasty satisfactory i n position on frontal projection. IMPRESSION: As Above.
[2020-01-15] MEDS: ASPIRIN 325 MG TAB PO SCH (20:15)
[2020-01-15] MEDS ORDERED: SENNOSIDES-DOCUSATE SODIUM 1 EACH TAB PO SCH (21:00)
[2020-01-15 22:29] LABS: Glucose,Whole Blood 314 mg/dL (75-99)
[2020-01-15] MEDS: INSULIN ASPART (NovoLOG) 100 UNIT/ML VIAL SQ SCH (22:32)
[2020-01-16] MEDS: HYDROcodone/APAP 5-325MG 1 EACH TAB PO PRN ×2 (00:29→07:48)
[2020-01-16 06:49] LABS: Glucose,Whole Blood 141 mg/dL (75-99)
[2020-01-16] MEDS: ASPIRIN 325 MG TAB PO SCH (07:42)
[2020-01-16] MEDS: INSULIN ASPART (NovoLOG) 100 UNIT/ML VIAL SQ SCH (07:44)
[2020-01-16 08:03] VITALS: BP 131/78; PULSE 85; RESP 20; TEMP 97.9
[2020-01-16 09:00] LABS: Basophils % (A) 0 %; Eosinophils # (A) 0.1 k/uL (0-0.7); Eosinophils % (A) 1 %; HCT 37.3 % (39.0-53.0); HGB 12.5 gm/dL (13.0-17.5); Lymphocytes # (A) 1.6 k/uL (1.0-4.8); Lymphocytes % (A) 17 %; MCH 31.2 pg (25.0-35.0); MCHC 33.3 g/dL (31.0-37.0); MCV 93.6 fL (80.0-100.0); Mean Platelet Volume 8.6; Monocytes # (A) 0.9 k/uL (0-1.0); Monocytes % (A) 10 %; Neutrophils # (A) 6.8 k/uL (1.3-7.7); Neutrophils % (A) 71 %; Platelet Count 189 k/uL (150-450); RBC 3.99 m/uL (4.30-5.90); RDW 12.8 % (11.5-15.5); WBC 9.5 k/uL (3.8-10.6)
[2020-01-16] MEDS ORDERED: MELOXICAM 7.5 MG TAB PO SCH (09:00)
[2020-01-16] MEDS ORDERED: lisinopriL 10 MG TAB PO SCH (09:00)
[2020-01-16 09:16] LABS: African American GFR (CKD) >90 (>60 ml/min/1.73 sqM); Anion Gap 6 mmol/L; Blood Urea Nitrogen 19 mg/dL (9-20); Calcium 8.8 mg/dL (8.4-10.2); Carbon Dioxide 22 mmol/L (22-30); Chloride 105 mmol/L (98-107); Glucose 188 mg/dL (74-99); Non-African American GFR(CKD) >90 (>60 ml/min/1.73 sqM); Potassium 4.6 mmol/L (3.5-5.1); Sodium 133 mmol/L (137-145)
[2020-01-16 11:39] LABS: Glucose,Whole Blood 177 mg/dL (75-99)
--- NOTE | 2020-01-16 12:39 | P.DS ---
Providers Expected date of discharge: 01/16/20 Attending physician: Ned Maldonado Consults: 01/15/20 16:46 Consult Physician Routine Consulting Provider: Neftaly Diaz Consult Reason/Comments: medical management Do you want consulting provider notified?: Yes Primary care physician: HI Fournier Hospital Course: This is a 64-year-old male with known history of degenerative arthritis of the left hip. The patient presents for evaluation. After discussion and consideration patient elects to proceed with total hip arthroplasty. The patient is seen preoperatively by Dr. Maldonado and medically cleared for surgery by their primary care physician. Patient is admitted to [facility] on 01/15/2020 for total hip arthroplasty. The procedures performed without complication or sequelae. The patient is doing well postoperatively. Labs and vital signs are stable on day of discharge. On day of discharge patient's hip incision is healing well. There is minimal erythema. There is no drainage noted at this time. There is minimal soft tissue swelling to the hip and thigh. Patient has full foot and ankle motion without difficulty or pain. Calf is soft and nontender to palpation. Neurovascular status to the left lower extremity is intact. Patient is discharged home in good condition. Opioid start talking form is reviewed and signed at patient bedside. Please see med rec for accurate list of home medications. Plan - Discharge Summary Discharge Rx Participant: No New Discharge Prescriptions: New Aspirin 325 mg PO BID #60 tab HYDROcodone/APAP 5-325MG [Labelle 5-325] 1 - 2 tab PO Q6HR PRN #42 tab PRN Reason: Pain Sennosides [Senokot] 2 tab PO DAILY PRN #60 tablet PRN Reason: Constipation No Action Celecoxib [CeleBREX] 200 mg PO DAILY EPINEPHrine (Auto Inject) [Epipen] 0.3 mg IM ONCE PRN PRN Reason: ALLERGIC REACTIONS Glimepiride [Amaryl] 4 mg PO BID lisinopriL [Prinivil] 10 mg PO QAM metFORMIN HCL 850 mg PO BID Temazepam [Restoril] 15 mg PO HS PRN PRN Reason: Insomnia HYDROcodone/APAP 5-325MG [Labelle 5-325] 1 tab PO Q4HR PRN 7 Days #42 tab PRN Reason: Pain Pantoprazole [Protonix] 40 mg PO BID HYDROcodone/APAP 7.5-325MG [Labelle 7.5-325] 1 tab PO Q4H PRN PRN Reason: Pain Discharge Medication List Celecoxib [CeleBREX] 200 mg PO DAILY 10/21/18 [History] EPINEPHrine (Auto Inject) [Epipen] 0.3 mg IM ONCE PRN 10/21/18 [History] Glimepiride [Amaryl] 4 mg PO BID 10/21/18 [History] Temazepam [Restoril] 15 mg PO HS PRN 10/21/18 [History] lisinopriL [Prinivil] 10 mg PO QAM 10/21/18 [History] metFORMIN HCL 850 mg PO BID 10/21/18 [History] HYDROcodone/APAP 5-325MG [Labelle 5-325] 1 tab PO Q4HR PRN 7 Days #42 tab 10/29/18 [Rx] HYDROcodone/APAP 7.5-325MG [Labelle 7.5-325] 1 tab PO Q4H PRN 01/05/20 [History] Pantoprazole [Protonix] 40 mg PO BID 01/05/20 [History] Aspirin 325 mg PO BID #60 tab 01/16/20 [Rx] HYDROcodone/APAP 5-325MG [Labelle 5-325] 1 - 2 tab PO Q6HR PRN #42 tab 01/16/20 [Rx] Sennosides [Senokot] 2 tab PO DAILY PRN #60 tablet 01/16/20 [Rx] Follow up Appointment(s)/Referral(s): [facility], [NON-STAFF] - Ned Maldonado DO [Doctor of Osteopathic Medicine] - 02/07/20 10:10 am Van Rai PAC [Primary Care Provider] - 01/24/20 9:00 am (Wear a mask and the pr specialist will come and screen you. ) Patient Instructions/Handouts: Anterior Hip Replacement (DC) Activity/Diet/Wound Care/Special Instructions: Weightbearing as tolerated with walker. Leave dressing intact for 10 days postoperatively. May shower with dressing intact. Dressing may be removed by patient. Compression stockings to be worn for 2 weeks postoperatively to help prevent blood clots. Please take medications as prescribed and follow [facility] with [facility] 2 [facility]. Call with any questions or concerns, . Discharge Disposition: HOME WITH HOME HEALTH SERVICES
--- NOTE | 2020-01-16 13:27 | P.CONS ---
History of Present Illness - Reason for Consult Consult date: 01/16/20 ortho consulted for medical management - Chief Complaint post op from left hip arthroplasty - History of Present Illness 64-year-old male with past medical history of diabetes presented for elective procedure, left hip arthroplasty. Medicine consulted by [facility] service for medical management. Patient has noted complaints, feels well after surgery. Ambulating well, reports pain from left hip is significantly improved. Other than mild pain from the surgical site, patient has no other complaints. All Systems reviewed and pertinent positives and negatives noted in HPI, all other symptoms are negative. Today, patient was afebrile, 131/78, heart rate 85, 95% on room air. CBC, chemistries reviewed and were unremarkable. Past Medical History Past Medical History: Diabetes Mellitus, GERD/Reflux Additional Past Medical History / Comment(s): TAKES LISINOPRIL A PREVENTATIVE WITH FAMILY HISTORY OF CHF. foot drop rt foot wears brace History of Any Multi-Drug Resistant Organisms: None Reported Past Surgical History: Adenoidectomy, Back Surgery, Joint Replacement, Tonsill ectomy Additional Past Surgical History / Comment(s): LAMINECTOMY. RIGHT TOTAL KNEE, PLUS 6 OTHER SURGERIES ON RIGHT KNEE, wrist Past Anesthesia/Blood Transfusion Reactions: No Reported Reaction Past Psychological History: No Psychological Hx Reported Additional Psychological History / Comment(s): VERY ANXIOUS ABOUT SURGERY, HAS NO RELIABLE FAMILY. HAS DRIVEN OVER 200 MILES TO COME TO [place]/DR. HERNANDEZ. STAYING WITH FRIENDS (AMAN). Smoking Status: Former smoker Past Alcohol Use History: None Reported Additional Past Alcohol Use History / Comment(s): QUIT 50 YRS AGO Past Drug Use History: Marijuana - Past Family History Mother Family Medical History: Congestive Heart Failure (CHF), Deep Vein Thrombosis (DVT), Rheumatoid Arthritis (RA) Father Family Medical History: Myocardial Infarction ([place]) Additional Family Medical History / Comment(s): [place] x4 Medications and Allergies Home Medications Medication Instructions Recorded Confirmed Type Celecoxib [CeleBREX] 200 mg PO DAILY 10/21/18 01/05/20 History EPINEPHrine (Auto Inject) [Epipen] 0.3 mg IM ONCE PRN 10/21/18 01/05/20 History Glimepiride [Amaryl] 4 mg PO BID 10/21/18 01/05/20 History Temazepam [Restoril] 15 mg PO HS PRN 10/21/18 01/05/20 History lisinopriL [Prinivil] 10 mg PO QAM 10/21/18 01/05/20 History metFORMIN HCL 850 mg PO BID 10/21/18 01/05/20 History HYDROcodone/APAP 5-325MG [[place] 1 tab PO Q4HR PRN 7 Days #42 tab 10/29/18 01/05/20 Rx 5-325] HYDROcodone/APAP 7.5-325MG [[place] 1 tab PO Q4H PRN 01/05/20 01/05/20 History 7.5-325] Pantoprazole [Protonix] 40 mg PO BID 01/05/20 01/05/20 History Aspirin 325 mg PO BID #60 tab 01/16/20 Rx HYDROcodone/APAP 5-325MG [[place] 1 - 2 tab PO Q6HR PRN #42 tab 01/16/20 Rx 5-325] Sennosides [Senokot] 2 tab PO DAILY PRN #60 tablet 01/16/20 Rx Allergies Allergy/AdvReac Type Severity Reaction Status Date / Time shellfish derived [Shellfish] Allergy Anaphylaxis Verified 01/15/20 13:28 Physical Exam Osteopathic Statement: *. No significant issues noted on an osteopathic structural exam other than those noted in the History and Physical/Consult. Vitals: Vital Signs Temp Pulse Resp BP Pulse Ox 01/16/20 07:44 85 20 01/16/20 07:00 97.9 F 85 20 131/78 95 01/16/20 00:22 98.3 F 71 16 90/53 94 L 01/15/20 23:13 89 01/15/20 19:55 93 94/58 97 01/15/20 19:40 90 123/64 95 01/15/20 19:00 73 130/52 01/15/20 18:30 89 131/85 96 01/15/20 18:15 72 92/55 96 01/15/20 18:00 78 108/54 99 01/15/20 17:30 77 16 132/79 98 01/15/20 17:15 82 16 147/94 100 01/15/20 17:00 71 14 153/85 100 01/15/20 16:45 77 16 158/88 100 01/15/20 16:30 74 16 153/75 100 01/15/20 16:20 96.8 F L 86 16 138/78 100 01/15/20 13:23 97 F L 95 16 156/70 97 Intake and Output 01/15/20 01/16/20 01/16/20 22:59 06:59 14:59 Intake Total 51 Output Total 250 400 Balance -199 -400 Intake: IV 51 Output: Urine 100 400 Estimated Blood Loss 150 Other: Voiding Method Toilet Weight 103.9 kg Gen: awake, alert HEENT: normocephalic, atraumatic, good hearing acuity, moist mucous membranes Resp: CTAB, good air exchange, no accessory muscle use, no wheezes, crackles, rhonchi CVS: good distal perfusion x 4, RRR, no murmurs, clicks, gallops GI: soft, NTTP, ND : no SPT, no CVAT, medina catheter not present MSK: no pitting edema, no clubbing Neuro: non-focal, no sensory deficits, appropriate tone Psych: cooperative, euthymic mood Results CBC & Chem 7: 01/16/20 07:51 01/16/20 07:51 Labs: Abnormal Lab Results - Last 24 Hours (Table) 01/15/20 01/15/20 01/15/20 Range/Units 13:44 16:59 22:27 RBC (4.30-5.90) m/uL Hgb (13.0-17.5) gm/dL Hct (39.0-53.0) % Sodium (137-145) mmol/L Creatinine (0.66-1.25) mg/dL Glucose (74-99) mg/dL POC Glucose (mg/dL) 176 H 207 H 314 H (75-99) mg/dL 01/16/20 01/16/20 01/16/20 Range/Units 06:48 07:51 07:51 RBC 3.99 L (4.30-5.90) m/uL Hgb 12.5 L (13.0-17.5) gm/dL Hct 37.3 L (39.0-53.0) % Sodium 133 L (137-145) mmol/L Creatinine 0.65 L (0.66-1.25) mg/dL Glucose 188 H (74-99) mg/dL POC Glucose (mg/dL) 141 H (75-99) mg/dL 01/16/20 Range/Units 11:38 RBC (4.30-5.90) m/uL Hgb (13.0-17.5) gm/dL Hct (39.0-53.0) % Sodium (137-145) mmol/L Creatinine (0.66-1.25) mg/dL Glucose (74-99) mg/dL POC Glucose (mg/dL) 177 H (75-99) mg/dL Assessment and Plan Assessment: 1. Diabetes type 2 2. Left hip arthroplasty 64-year-old man with past medical history of diabetes presented after left hip arthroplasty; medicine consulted for medical management. Next Plan: Medications reviewed, my only discharge recommendation regarding medication changes would be to discontinue the Celebrex while on aspirin twice a day for DVT prophylaxis. Otherwise, patient was counseled on his current medication regimen, and will not undergo any changes at this time. Okay for discharge from medicine perspective, thank you for allowing us to participate in the care of this patient, please reach the medicine team for further questions or concerns should the need arise.
== END 2020-01-16 12:23 | disposition home health service (06) ==
LOC: OR 12:44 → 4SSUR 17:35 → OR 01-16 12:23 → EDSTATUS 01-23 11:30
PROVIDERS: ATTEND Orthopaedic Surgery
DX: M16.12 Unilateral primary osteoarthritis, left hip (principal); I10 Essential (primary) hypertension; E11.9 Type 2 diabetes mellitus without complications; K21.9 Gastro-esophageal reflux disease without esophagitis; Z87.891 Personal history of nicotine dependence; Z91.013 Allergy to seafood; Z79.84 Long term (current) use of oral hypoglycemic drugs; Z79.899 Other long term (current) drug therapy; Z79.891 Long term (current) use of opiate analgesic; Z79.1 Long term (current) use of non-steroidal anti-inflammatories (NSAID); Z97.3 Presence of spectacles and contact lenses; Z96.651 Presence of right artificial knee joint; Z90.89 Acquired absence of other organs; Z98.890 Other specified postprocedural states; Z98.1 Arthrodesis status; Z82.49 Family history of ischemic heart disease and other diseases of the circulatory system; Z83.3 Family history of diabetes mellitus; Z82.61 Family history of arthritis
CPT/HCPCS: 97110; 97161; 97165; 86891; 80048; 85025; 88300; 73501 ×2; 27130; C1776; J2250; J0171; J1200; J1644; J1100; J2710; J0690 ×3; J2405; J2001; J3010; J1885; J1170; J2795; J0330; J2704; J0735; 86850; 86900; 86901

== ENCOUNTER 2021-09-02 10:02 | Day surgery (SDC) | payer MEDICARE ==
[2021-08-28 09:35] VITALS: BMI 33.0
[~2021-09-02 10:02] MED LIST changes: -ACETAMINOPHEN TAB 500 MG TAB PO ONE; +ACETAMINOPHEN TAB 500 MG TAB PO PRN; +DEXAMETHASONE SOD PHOSPHATE 4 MG/ML 1 ML VIAL IV ONE; -GABAPENTIN 300 MG CAP PO ONE; +GABAPENTIN 300 MG CAP PO PRN; -LIDOCAINE 1% (10MG/ML) FOR IV START INTRADERMA PRN; -MELOXICAM 7.5 MG TAB PO ONE; +MELOXICAM 7.5 MG TAB PO PRN; -MIDAZOLAM 2 MG/2 ML VIAL IV PRN; +ONDANSETRON 4 MG/2 ML VIAL IVP ONE; -TRANEXAMIC ACID 1,000 MG in SODIUM CHLORIDE 0.9% 100 ML IVPB ONE; +TRANEXAMIC ACID IN NACL,ISO-OS 1,000 MG in SALINE 1 100ML.BAG IVPB PRN; -fentaNYL (PF) 50 MCG/ML 2 ML AMP IV PRN
[2021-09-02] MEDS ORDERED: ONDANSETRON 4 MG/2 ML VIAL IVP PRN (10:27)
[2021-09-02] MEDS ORDERED: HYDROmorphone 0.5 MG/0.5 ML SYRINGE IVP PRN ×2 (10:27)
[2021-09-02] MEDS ORDERED: HYDROmorphone 0.2 MG/1 ML SYRINGE IVP PRN (10:27)
[2021-09-02] MEDS ORDERED: NALOXONE 0.4 MG/ML 1 ML VIAL IV PRN (10:27)
[2021-09-02] MEDS ORDERED: MAGNESIUM HYDROXIDE 2,400 MG/10 ML CUP PO PRN (10:27)
[2021-09-02] MEDS ORDERED: HYDROcodone/APAP 7.5-325MG 1 EACH TAB PO PRN (10:29)
[2021-09-02] MEDS: LACTATED RINGERS 1,000 ML IV SCH (11:27)
[2021-09-02 11:28] LABS: Glucose,Whole Blood 152 mg/dL (75-99)
[2021-09-02] MEDS ORDERED: SUCCINYLCHOLINE CHLORIDE 100 MG/5 ML SYR IV ONE (11:52)
[2021-09-02] MEDS ORDERED: MIDAZOLAM 2 MG/2 ML VIAL ONE (11:52)
[2021-09-02] MEDS ORDERED: ROCURONIUM 10 MG/ML (5 ML VIAL) IV ONE (11:52)
[2021-09-02] MEDS ORDERED: GLYCOPYRROLATE 0.2 MG/ML 2 ML VIAL ONE (11:52)
[2021-09-02] MEDS ORDERED: PROPOFOL 10 MG/ML 20 ML VIAL IV ONE (11:52)
[2021-09-02] MEDS ORDERED: LIDOCAINE 1% INJ 10MG/ML (20 ML MDV) ONE (11:52)
[2021-09-02] MEDS ORDERED: NEOSTIGMINE 1 MG/ML 10 ML VIAL ONE (11:52)
[2021-09-02] MEDS ORDERED: TRANEXAMIC ACID IN NACL,ISO-OS 1,000 MG/100 ML BAG ONE (11:52)
[2021-09-02] MEDS ORDERED: fentaNYL (PF) 50 MCG/ML 2 ML AMP ONE (11:52)
[2021-09-02] MEDS ORDERED: ROPIVACAINE 5 MG/ML 30 ML VIAL MISCELLANE ONE ×2 (11:57)
[2021-09-02] MEDS ORDERED: ceFAZolin 1,000 MG in SODIUM CHLORIDE 0.9% 1,000 ML IRRIGATION ONE (12:28)
[2021-09-02] MEDS ORDERED: LACTATED RINGERS 1,000 ML IV ONE (12:54)
--- NOTE | 2021-09-02 13:15 | P.OP ---
Date of Procedure: 09/02/21 Preoperative Diagnosis: Severe osteoarthritis right hip Postoperative Diagnosis: Severe osteoarthritis right hip Procedure(s) Performed: Right total hip arthroplasty with a direct anterior approach Implants: [employer] Polarstem standard size 4 [employer] R3, 3 hole hemispherical acetabular shell, 52 mm [employer] Reflection 6.5 mm cancellus screw, 20 mm 2 [employer] R3, XLPE 20 acetabular liner [employer] Oxinium femoral head 36 m, -3 All components were press-fit. The articulation is Oxinium on polyethylene. Anesthesia: GETA Surgeon: Ned Maldonado Lode Miner Blasting #1: Marisela Hays Estimated Blood Loss (ml): 300 Pathology: other (Femoral head) Condition: stable Disposition: PACU Indications for Procedure: After failure of conservative treatment we discussed the surgical and nonsurgical treatment options at length. Patient wishes to proceed with a total hip arthroplasty with a direct anterior approach. Complications specific to this procedure were discussed at length, including but not limited to infection, leg length discrepancy, dislocation, nerve injury, and fracture. Covid-19 was also discussed at length with the patient, and they are aware of the current policies and procedures. The patient was given the option of delaying surgery, but they elect to proceed knowing these risks. Patient is aware of all these complications and informed consent was obtained Operative Findings: The operative findings are consistent with severe osteoarthritis of the right hip Description of Procedure: Patient was seen and evaluated in the preoperative area and the consent was reviewed. The operative site was marked with a skin marker. The patient was then brought to the operating room and given preoperative antibiotics intravenously. 1 g of Tranexamic acid was also given intravenously. A general anesthetic was administered by the anesthesia department. The patient was then placed on the [place] table with the bony prominences well-padded. The hip area was then prepped with a ChloraPrep solution and draped in the usual sterile fashion. A universal timeout was then performed, which confirmed the patient's name, surgical site, ALLERGIES, and procedure being performed on the consent. Next the incision site was located at 1 cm distal and 2 cm lateral to the anterior superior iliac spine. The skin and subcutaneous tissues were sharply incised. Incision was carefully dissected down to the fascia overlying the tensor fascia raphael muscle. This fascia was then incised in line with the incision. Care was taken to stay laterally in order to avoid injuring the lateral femoral cutaneous nerve. Next, using blunt finger dissection, the tensor fascia raphael muscle was dissected off its investing fascia. The muscle was then carefully retracted laterally with a cobra retractor over the lateral neck of the femur. Next, the circumflex vessels were identified and cauterized using the AquaMantis device. The anterior hip capsule was then exposed. The capsule was then opened and an inverted T fashion. Cobra retractors were then placed intracapsularly. The retractors were maintained intracapsular throughout the procedure. The proximal femur was then visualized. Fluoroscopic x-rays were then taken in order to evaluate the preoperative leg lengths. A small amount of traction was placed on the leg. The femoral neck was then osteotomized at the appropriate level above the lesser trochanter. A small wedge of bone was then removed from the remaining femoral head. Next, using a corkscrew the femoral head was removed from the acetabulum. On gross visual inspection, the femoral head had complete loss of articular cartilage and multiple periarticular osteophytes. The femoral head was then measured. Attention was then turned to the acetabulum. The acetabulum was exposed and any remaining labrum was excised. Sequential reaming of the acetabulum was performed using fluoroscopic guidance until there was a good bed of bleeding cancellus bone. When the appropriate size was reached, a trial was then placed. The position and fit of the trial was checked with fluoroscopy. The trial was then removed. Then, using fluoroscopic guidance, the final implant was impacted at 20 of anteversion and 40 of abduction, and fully seated in the acetabulum. 2 screws were then placed in the acetabulum. Again fluoroscopy was used to check position of the screws. Next, the liner was then impacted, with a 20 elevated liner located in the anterior superior quadrant. Component locking was confirmed. Attention was then directed to the femur. With the aid of the Warthen table, the femur was externally rotated to approximately 130, extended, and adducted under the opposite leg. A side hook was then placed under the proximal femur, and the side hook elevator was used to elevate the proximal femur while releasing the capsule. Retractors were then placed. A capsular release was performed, as w ell as a release of the conjoined tendon, which afforded excellent visualization of the proximal femur. Next, a box osteotome was used to lateralize the proximal femur. A log handler was then used to locate the femoral canal. Sequential broaching was then performed with appropriate size which afforded excellent fixation in the proximal femur. A trial was then placed with appropriate head and neck, and the hip was gently reduced with the aid of the Warthen table. Fluoroscopy was then used to check position of the components, as well as to ensure equal leg lengths. The hip was then gently dislocated and the trials were then removed. Final implants were then impacted and the hip was again reduced. Final fluoroscopic x-rays confirmed that the components were in anatomic position, as well as equal leg lengths. The hip was also taken through range of motion, and found to be stable. The hip was then copiously irrigated with antibiotic solution with pulsatile lavage. The hip was then irrigated with Irrisept solution. The soft tissues were then injected with a ropivacaine solution. A second dose of 1 g of Tranexamic acid was also given intravenously. The fascia was then closed with 2-0 strata fix suture. The subcutaneous tissue was closed with 3-0 Vicryl. The subcuticular tissue was closed with 3-0 strata fix suture. The skin was then closed with Exofin skin glue. After the glue and dried, and Optifoam silver impregnated dressing was applied. The patient was then transferred to the recovery room in stable condition. The family and divorce legal assistant SIDDHARTH Norman was required due to the complexity of surgery, and the need for skilled surgical consultant for positioning, draping, exposure, retraction, and closure of the wound.
--- NOTE | 2021-09-02 13:40 | FL ---
Fluoroscopy HISTORY: Right anterior hip replacement 40 seconds fluoroscopy time supplied to the referring clinician. 2 intraoperative C-arm images docum ent the procedure. See dictated report from orthopedic surgery.
[2021-09-02] MEDS: HYDROmorphone 0.5 MG/0.5 ML SYRINGE IVP PRN ×3 (14:00→14:40)
[2021-09-02] MEDS ORDERED: ONDANSETRON 4 MG/2 ML VIAL IVP ONE (14:03)
--- NOTE | 2021-09-02 14:09 | XR ---
Limited right hip HISTORY: Status post right hip arthroplasty Single frontal view of the right hip Patient is status post right hip arthroplasty. There is anatomic alignment. Lucencies present within the soft tissues. Postop change also noted incidentally to the lumbosacral spine, left hip. IMPRESSION: Orthopedic follow-up.
[2021-09-02] MEDS ORDERED: SODIUM CHLORIDE 0.9% 1,000 ML IV ONE (15:30)
[2021-09-02 16:23] LABS: Glucose,Whole Blood 225 mg/dL (75-99)
[2021-09-02] MEDS: HYDROcodone/APAP 7.5-325MG 1 EACH TAB PO PRN (17:43)
[2021-09-02] MEDS: SODIUM CHLORIDE 0.9% 1,000 ML IV SCH (17:47)
--- NOTE | 2021-09-02 18:54 | P.CONS ---
History of Present Illness - Reason for Consult Consult date: 09/02/21 DM Requesting physician: Ned Maldonado - Chief Complaint hip pain - History of Present Illness Patient is a 66-year-old male with diabetes, hypertension, and osteoarthritis who presented for right total hip arthroplasty. Patient seen and examined at bedside. He reports that pain is currently well controlled. He denies any nausea, vomiting, lightheadedness. He states that his sugars are typically well controlled his last A1c was 7.2. He reports that sugars are typically around 150 in the morning. He takes Amaryl and metformin. His only had one time where he required IV insulin and this was after back surgery with steroids. He lives up [place] and will be returning there after surgery. Pertinent positives and negatives as discussed in HPI, a complete review of systems was performed and all other systems are negative. General: non toxic, no distress, appears at stated age Derm: warm, dry Head: atraumatic, normocephalic, symmetric Eyes: EOMI, no lid lag, anicteric sclera, pupils equal round reactive to light ENT: Nose and ears atraumatic, no thrush, no pharyngeal erythema Neck: No thyromegaly, no cervical lymphadenopathy, trachea midline, supple Mouth: no lip lesion, mucus membranes moist Cardiovascular: S1S2 reg, no murmur, positive posterior tibial pulse bilateral, no edema, capillary refill less than 2 seconds Lungs: clear to ascultation bilateral, no ronchi, no rales, no wheeze, no accessory muscle use Abdominal: soft, nontender to palpation, no guarding, no appreciable organomegaly, normal bowel sounds Ext: no gross muscle atrophy, muscle strength muscle strength 5 out of 5 in all upper extremities, no contractures Neuro: CN II-XI grossly intact, light touch intact all 4 extremities, finger to nose within normal limits, Psych: Alert, oriented, appropriate affect Patient is a 66-year-old male status post right total hip arthroplasty. Management per primary team. Diabetes mellitus type 2 - hold metformin, amaryl Obesity wtih BMI 31.9 - has lost 40 lbs ove the past year, continue healthy eating Osteoarthritis - pain control Thank you for allowing us to participate in the care of this pleasant patient. Do not hesitate to contact us with questions. Someone can be reached from the [facility] hospitalist group all hours of the day at [phone] or via [employer]. Past Medical History Past Medical History: Diabetes Mellitus, Hypertension, Osteoarthritis (OA) Additional Past Medical History / Comment(s): TAKES LISINOPRIL A PREVENTATIVE WITH FAMILY HISTORY OF MAJOR CARDIAC PROBLEMS, HIATAL HERNIA History of Any Multi-Drug Resistant Organisms: None Reported Past Surgical History: Adenoidectomy, Back Surgery, Joint Replacement, Tonsillectomy Additional Past Surgical History / Comment(s): LAMINECTOMY. RIGHT TOTAL KNEE 2006 , PLUS 6 OTHER SURGERIES ON RIGHT KNEE, wrist surgery , TOTAL LEFT HIP Past Anesthesia/Blood Transfusion Reactions: No Reported Reaction Smoking Status: Former smoker - Past Family History Mother Family Medical History: Congestive Heart Failure (CHF), Deep Vein Thrombosis (DVT), Rheumatoid Arthritis (RA) Father Family Medical History: Myocardial Infarction ([place]) Additional Family Medical History / Comment(s): [place] x4 Medications and Allergies Home Medications Medication Instructions Recorded Confirmed Type EPINEPHrine (Auto Inject) [Epipen] 0.3 mg IM ONCE PRN 10/21/18 08/28/21 History Glimepiride [Amaryl] 4 mg PO BID 10/21/18 08/28/21 History lisinopriL [Prinivil] 10 mg PO QAM 10/21/18 08/28/21 History metFORMIN HCL [Glucophage] 850 mg PO BID 10/21/18 08/28/21 History Pantoprazole [Protonix] 40 mg PO BID 01/05/20 08/28/21 History Celecoxib [CeleBREX] 200 mg PO DAILY 08/28/21 08/28/21 History Allergies Allergy/AdvReac Type Severity Reaction Status Date / Time cimetidine [From Tagamet] Allergy Abdominal Verified 09/02/21 11:02 Pain shellfish derived [Shellfish] Allergy Anaphylaxis Verified 09/02/21 11:02 Physical Exam Osteopathic Statement: *. No significant issues noted on an osteopathic structural exam other than those noted in the History and Physical/Consult. Vitals: Vital Signs Temp Pulse Pulse Resp BP Pulse Ox 09/02/21 17:28 93 130/75 09/02/21 17:13 108 H 146/78 09/02/21 16:44 90 144/76 94 L 09/02/21 16:39 88 127/74 94 L 09/02/21 16:30 98.2 F 94 18 139/75 98 09/02/21 15:40 66 17 140/77 99 09/02/21 15:20 68 16 138/77 99 09/02/21 15:05 71 16 148/89 98 09/02/21 14:50 69 16 148/89 98 09/02/21 14:35 69 16 146/87 99 09/02/21 14:20 64 16 143/77 97 09/02/21 14:05 70 16 171/90 97 09/02/21 13:50 68 16 166/90 99 09/02/21 13:38 99.0 F 72 14 154/72 99 09/02/21 11:16 98.1 F 82 16 156/81 95 Intake and Output 09/02/21 09/02/21 09/02/21 06:59 14:59 22:59 Intake Total 1451 1080 Output Total 300 0 Balance 1151 1080 Intake: IV 1451 600 Oral 480 Output: Urine 0 Estimated Blood Loss 300 Other: Weight 100.7 kg 100.7 kg Results Labs: Abnormal Lab Results - Last 24 Hours (Table) 09/02/21 09/02/21 Range/Units 11:23 16:22 POC Glucose (mg/dL) 152 H 225 H (75-99) mg/dL
[2021-09-02 20:37] LABS: Glucose,Whole Blood 256 mg/dL (75-99)
[2021-09-02] MEDS: PANTOPRAZOLE 40 MG TABLET PO SCH (20:37)
[2021-09-02] MEDS: ASPIRIN 325 MG TAB PO SCH (20:37)
[2021-09-02] MEDS: INSULIN ASPART (NovoLOG) 100 UNIT/ML VIAL SQ SCH (20:38)
[2021-09-02] MEDS ORDERED: SENNOSIDES-DOCUSATE SODIUM 1 EACH TAB PO SCH (21:00)
[2021-09-03] MEDS: HYDROcodone/APAP 7.5-325MG 1 EACH TAB PO PRN (00:02)
[2021-09-03] MEDS: SODIUM CHLORIDE 0.9% 1,000 ML IV SCH (03:42)
[2021-09-03 06:51] LABS: Glucose,Whole Blood 182 mg/dL (75-99)
[2021-09-03] MEDS: PANTOPRAZOLE 40 MG TABLET PO SCH (07:18)
[2021-09-03] MEDS: ASPIRIN 325 MG TAB PO SCH (07:18)
[2021-09-03] MEDS: INSULIN ASPART (NovoLOG) 100 UNIT/ML VIAL SQ SCH (07:19)
[2021-09-03 07:25] VITALS: BP 143/76; PULSE 76; RESP 19; TEMP 98.3
--- NOTE | 2021-09-03 08:31 | P.DS ---
Providers Expected date of discharge: 09/03/21 Attending physician: Ned Maldonado Consults: 09/02/21 10:27 Consult Physician Routine Consulting Provider: Cecilia Campuzano Consult Reason/Comments: medical management Do you want consulting provider notified?: Yes Primary care physician: Angeli Temple MD - Discharge Diagnosis(es) (1) Primary osteoarthritis of right hip Current Visit: Yes Status: Acute (2) S/P total right hip arthroplasty Current Visit: Yes Status: Acute Hospital Course: This is a 66-year-old male with known history of degenerative arthritis of the right hip. The patient presents for evaluation. After discussion and consid eration patient elects to proceed with total hip arthroplasty with direct anterior approach. The patient is seen preoperatively by primary care physician and cleared for surgery. Patient is admitted to [facility] on 09/02/2021 for total hip arthroplasty with direct anterior approach. The procedure is performed without complication or sequelae. The patient is doing well postoperatively. Labs and vital signs are stable on day of discharge. On day of discharge patient's hip incision is healing well. There is minimal erythema. There is no drainage noted at this time. There is minimal soft tissue swelling to the hip and thigh. Patient has full foot and ankle motion without difficulty or pain. Neurovascular status to the lower extremity is intact. Patient is discharged to home in good condition. Please see med rec for accurate list of home medications. Patient Condition at Discharge: Good Plan - Discharge Summary Discharge Rx Participant: Yes New Discharge Prescriptions: New HYDROcodone/APAP 7.5-325MG [[place] 7.5-325] 1 - 2 tab PO Q6HR PRN #32 tab PRN Reason: Pain Aspirin 325 mg PO BID #60 tab Sennosides-Docusate Sodium [Senokot-S] 1 tab PO BID #60 tablet No Action EPINEPHrine (Auto Inject) [Epipen] 0.3 mg IM ONCE PRN PRN Reason: ALLERGIC REACTIONS Glimepiride [Amaryl] 4 mg PO BID lisinopriL [Prinivil] 10 mg PO QAM metFORMIN HCL [Glucophage] 850 mg PO BID Pantoprazole [Protonix] 40 mg PO BID Celecoxib [CeleBREX] 200 mg PO DAILY Discharge Medication List EPINEPHrine (Auto Inject) [Epipen] 0.3 mg IM ONCE PRN 10/21/18 [History] Glimepiride [Amaryl] 4 mg PO BID 10/21/18 [History] lisinopriL [Prinivil] 10 mg PO QAM 10/21/18 [History] metFORMIN HCL [Glucophage] 850 mg PO BID 10/21/18 [History] Pantoprazole [Protonix] 40 mg PO BID 01/05/20 [History] Celecoxib [CeleBREX] 200 mg PO DAILY 08/28/21 [History] Aspirin 325 mg PO BID #60 tab 09/03/21 [Rx] HYDROcodone/APAP 7.5-325MG [[place] 7.5-325] 1 - 2 tab PO Q6HR PRN #32 tab 09/03/21 [Rx] Sennosides-Docusate Sodium [Senokot-S] 1 tab PO BID #60 tablet 09/03/21 [Rx] Follow up Appointment(s)/Referral(s): [facility], [NON-STAFF] - As Needed ([facility] will call you to schedule your in home physical therapy visits. ) Ned Maldonado DO [Doctor of Osteopathic Medicine] - 2 Weeks Activity/Diet/Wound Care/Special Instructions: Weightbearing as tolerated with walker. Leave dressing intact. Dressing may be removed by home care nurse or by patient in 7 days. Then change dressing twice daily until follow up. May shower with initial dressing intact and after removal. If dressing become saturated, please remove. Please take aspirin 325mg twice daily for 30 days to prevent blood clots. Recommend use of compression stockings daily until follow up to help prevent swelling and blood clots. May remove at night before sleeping. Please follow[facility]up with [facility] 2 weeks and call with any questions or concerns, . Discharge Disposition: HOME WITH HOME HEALTH SERVICES
[2021-09-03] MEDS ORDERED: MELOXICAM 7.5 MG TAB PO SCH (09:00)
[2021-09-03] MEDS ORDERED: metFORMIN 850 MG TAB PO SCH (09:00)
[2021-09-03] MEDS ORDERED: lisinopriL 10 MG TAB PO SCH (09:00)
[2021-09-03] MEDS ORDERED: GLIMEPIRIDE 4 MG TAB PO SCH (09:00)
[2021-09-03 09:50] LABS: Basophils # (A) 0.02 X 10*3/uL (0.00-0.10); Basophils % (A) 0.2 %; Eosinophils # (A) 0.04 X 10*3/uL (0.04-0.35); Eosinophils % (A) 0.4 %; HCT 36.3 % (39.6-50.0); HGB 12.2 g/dL (13.0-17.0); Immature Grans, Automated 0.4 %; Lymphocytes % (A) 19.8 %; MCH 31.5 pg (27.0-32.0); MCHC 33.6 g/dL (32.0-37.0); MCV 93.8 fL (80.0-97.0); Mean Platelet Volume 10.8 fL (9.5-12.2); Monocytes % (A) 12.1 %; NRBC Per 100 WBC 0 /100 WBCS (0.0-0.0); Neutrophils # (A) 6.09 X 10*3/uL (1.80-7.70); Neutrophils % (A) 67.1 %; Platelet Count 171 X 10*3/uL (140-440); RBC 3.87 X 10*6/uL (4.40-5.60); RDW 12.9 % (11.5-14.5); WBC 9.09 X 10*3/uL (4.50-10.00)
[2021-09-03] MEDS: LACTATED RINGERS 1,000 ML IV SCH (10:51)
--- NOTE | 2021-09-03 19:12 | P.PN ---
Subjective Progress Note Date: 09/03/21 (delayed charting seen at 1045) Patient is a 66-year-old male with diabetes, hypertension, and osteoarthritis who presented for right total hip arthroplasty. Patient seen and exmained at bedside. No chest pain, no shrontess of breath, moving well, Had a long discussion on how to monitor blood sugars. General: non toxic, no distress, appears at stated age Derm: warm, dry Head: atraumatic, normocephalic, symmetric Eyes: EOMI, no lid lag, anicteric sclera Mouth: no lip lesion, mucus membranes moist Cardiovascular: S1S2 reg, no murmur, positive posterior tibial pulse bilateral, Lungs: CTA bilateral, no rhonchi, no rales , no accessory muscle use Abdominal: soft, nontender to palpation, no guarding, no appreciable organomegaly Ext: no gross muscle atrophy, no edema, no contractures Neuro: CN II-XI grossly intact, no focal neuro deficits Psych: Alert, oriented, appropriate affect Patient is a 66-year-old male status post right total hip arthroplasty. Management per primary team. Diabetes mellitus type 2 - resume metformin, amaryl - follow BS in AM for 10 days - follow-up with PCP next week. Obesity wtih BMI 31.9 - has lost 40 lbs ove the past year, continue healthy eating Osteoarthritis Medically optimized for discharge Med recs addressed and instructions for blood sugar monitoring placed on discharged med recs Objective - Vital Signs Vital signs: Vital Signs Temp 98.3 F 09/03/21 07:24 Pulse 76 09/03/21 07:24 Resp 19 09/03/21 07:24 BP 143/76 09/03/21 07:24 Pulse Ox 96 09/03/21 07:24 Intake & Output 09/03/21 09/03/21 09/04/21 06:59 18:59 06:59 Other: # Voids 3 - Labs CBC & Chem 7: 09/03/21 06:33 Labs: Abnormal Lab Results - Last 24 Hours (Table) 09/02/21 09/03/21 09/03/21 Range/Units 20:35 06:33 06:50 RBC 3.87 L (4.40-5.60) X 10*6/uL Hgb 12.2 L (13.0-17.0) g/dL Hct 36.3 L (39.6-50.0) % Monocytes # 1.10 H (0.20-1.00) X 10*3/uL POC Glucose (mg/dL) 256 H 182 H (75-99) mg/dL
== END 2021-09-03 12:22 | disposition home health service (06) ==
LOC: OR 10:02 → 4SSUR 13:38 → OR 09-03 12:22
PROVIDERS: ATTEND Orthopaedic Surgery
DX: M16.11 Unilateral primary osteoarthritis, right hip (principal); E11.9 Type 2 diabetes mellitus without complications; I10 Essential (primary) hypertension; E66.9 Obesity, unspecified; Z68.31 Body mass index [BMI] 31.0-31.9, adult; Z90.49 Acquired absence of other specified parts of digestive tract; Z96.651 Presence of right artificial knee joint; Z82.49 Family history of ischemic heart disease and other diseases of the circulatory system; Z79.84 Long term (current) use of oral hypoglycemic drugs; Z88.8 Allergy status to other drugs, medicaments and biological substances
CPT/HCPCS: 27130; 97161; 97166; 86900; 86901; 85025; 86850; 88300; 73501; 36415; C1776; J2250; J1100; J2710; J0690 ×3; J2405; J2001; J3010; J2795; J0330; J2704; J1170